=== PATIENT | male | born 2000 | race American Indian/Alaskan Native ===

== ENCOUNTER 2020-10-01 10:10 | Outpatient (REF) | payer MEDICAID, SELFPAY ==
[2020-10-01 12:01] LABS: Cholesterol 152 mg/dL; HDL Cholesterol 37 mg/dL; LDL Cholesterol Calculated 96 mg/dl; Triglycerides 96 mg/dL
[2020-10-08 12:46] LABS: Factor VIII Activity Clotting 95 % normal (50-180); PTT, Activated 29 sec (23-32); Ristocetin Cofactor 138 % normal (42-200)
== END 2020-10-01 10:11 | disposition home or self-care (01) ==
LOC: HO.LAB 10:10
PROVIDERS: PCP Internal Medicine; Visit Provider Internal Medicine
DX: E78.2 Mixed hyperlipidemia (principal); R04.0 Epistaxis
CPT/HCPCS: 36415; 80061; 85240; 85245; 85246; 85247; 85730

== ENCOUNTER 2021-03-14 15:01 | Outpatient (REF) | payer MEDICAID, SELFPAY ==
[2021-03-14 16:02] LABS: Anion Gap 13 (12-20); Blood Urea Nitrogen 14 mg/dL (9-16); Carbon Dioxide 27 mmol/L (22-29); Chloride 104 mmol/L (96-108); Estimated Glomerular Filt Rate > 60; Glucose Random 91 mg/dL (60-115); Potassium 4.3 mmol/L (3.3-5.1); Sodium 140 mmol/L (135-145)
[2021-03-14 16:22] LABS: Thyroid Stimulating Hormone 0.95 uIU/mL (0.32-4.0)
[2021-03-14 16:24] LABS: Syphilis Screen Nonreactive (Nonreactive)
[2021-03-14 16:37] LABS: Vitamin B12 574 pg/mL (200-900)
[2021-03-15 12:51] LABS: Lyme Abs Screen <0.90 index
== END 2021-03-14 15:02 | disposition home or self-care (01) ==
LOC: HO.LAB 15:01
PROVIDERS: PCP Nurse Practitioner; Visit Provider Psychiatry & Neurology Neurology
DX: G93.49 Other encephalopathy (principal)
CPT/HCPCS: 36415; 80048; 82607; 82746; 84443; 86617; 86618; 86780

== ENCOUNTER 2021-03-22 10:17 | Outpatient (REF) | payer MEDICAID, SELFPAY ==
--- NOTE | ~2021-03-22 | MR_ITS ---
EXAMINATION: MRI OF THE BRAIN WITHOUT CONTRAST. 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 COMPARISON: None TECHNIQUE: Multiplanar multisequence MR imaging of the brain was done without IV contrast. FINDINGS: Brain Volume: Within normal limits. Structural: No malformations. Brain and Meninges: DWI sequence demonstrates no restricted diffusion. There is a punctate T2 hyperintensity in the anterior subcortical right frontal white matter near the convexity which is a nonspecific finding. The brain is otherwise normal in morphology and signal intensity. There is no evidence for hemorrhage, hemosiderin staining or abnormal mineral deposition. No extra-axial fluid collections, space-occupying process or mass effect are identified. Espinosa-white matter differentiation is well maintained. Ventricles and Subarachnoid Spaces: The ventricular system and subarachnoid spaces appear within normal limits without hydrocephalus. Orbital Structures: The visualized orbital structures are grossly unremarkable within the limitations of the study. Vascular: Signal voids are noted in the visualized major intracranial vessels. Sinuses and Osseous Structures: Tiny retention cyst along the floor of the right maxillary sinus noted. Bony structures appear intact and unremarkable. MR/MR head/brain wo con IMPRESSION: 1. Nonspecific punctate subcortical white matter T2 hyperintensity in the right frontal lobe near the convexity. 2. Otherwise normal noncontrast MRI of the brain.
== END 2021-03-22 10:18 | disposition home or self-care (01) ==
LOC: HO.MRI 10:17
PROVIDERS: PCP Nurse Practitioner; Visit Provider Psychiatry & Neurology Neurology
DX: G93.49 Other encephalopathy (principal)
CPT/HCPCS: 70551

== ENCOUNTER 2021-05-26 08:43 | Emergency (ER) | payer MEDICAID, SELFPAY ==
[2021-05-26 08:46] VITALS: BP 145/87; PULSE 77; RESP 18; TEMP 36.9; O2SAT 95
--- NOTE | 2021-05-26 08:54 | ED.GENADULT ---
HPI - General Adult General Chief complaint: Upper Respiratory Symptoms Stated complaint: Sore throat Time Seen by Provider: 05/26/21 08:48 Source: patient Mode of arrival: ambulatory Limitations: no limitations History of Present Illness HPI narrative: Patient comes to emergency room complaining of a sore throat for couple of days. Patient denies fever chills, no ear pain. Patient complaining of nasal congestion. Patient states that over the last year he has been using his inhaler for asthma more often than usual, but has not changed over the last few days. Related Data Allergies Allergy/AdvReac Type Severity Reaction Status Date / Time No Known Allergies Allergy Unverified 11/13/19 19:34 [No Known Allergies*] Review of Systems Review of Systems: Constitutional : No Weight loss, No Fever, No Chills, No Night Sweats, No Fatigue, No Malaise ENT/Mouth : No Hearing loss, No Ear Pain, complaining of Nasal Congestion, No Sinus Pain, No Hoarseness, No sore throat, complaining of Rhinorrhea, No Swallowing Difficulty Eyes: No Eye Pain, No Swelling, No Redness, No Foreign Body, No Discharge, No Vision Changes Cardiovascular : No Chest Pain, No SOB, No Dyspnea on Exertion, No Orthopnea, No Edema, No Palpitations Respiratory : No Cough, No Sputum, chronic intermittent Wheezing, No Smoke Exposure, No Dyspnea Gastrointestinal : No Nausea, No Vomiting, No Diarrhea, No Constipation, No abdominal Pain, No Hematochezia, No Melena Genitourinary : no irregular bleeding, No Dysuria, No Urinary Frequency, No Hematuria, No Urinary Incontinence, No Urgency, No Flank Pain, No Urinary Flow Changes, No Hesitancy Musculoskeletal : No joint pain, No Myalgias, No Joint Swelling Skin : No Skin Lesions, No rash Neuro : No Weakness, No Numbness, No Paresthesias, No Loss of Consciousness, No Dizziness, No Headache Psych : No Anxiety/Panic, No Depression, No SI/HI/AH/VH, No Social Issues, Heme/Lymph: No Bruising, No Bleeding,No Lymphadenopathy Endocrine : No Polyuria, No Polydipsia, No Temperature Intolerance PMF Past Medical History Medical History (Updated 05/26/21 @ 09:01 by Tarsha Esquivel MD) Asthma Social History Social History Advance Directives: No Physical Exam ED Vital Signs: Vital Signs - 24 hr 05/26/21 08:46 05/26/21 09:17 Temperature 98.5 F 98.5 F Pulse Rate 77 77 Respiratory Rate 18 18 Blood Pressure 145/87 H 145/87 H Pulse Oximetry 95 95 BMI result Body Mass Index 22.9 Const Other: Appearance: Alert. Oriented X3. No acute distress. Eyes: Pupils equal, round and reactive to light. ENT: Erythematous oropharynx, no abscess, uvula is slightly enlarged without causing any shifting or obstruction, no exudates, normal tongue Neck: Normal inspection. Neck supple. No lymph nodes noted. No crepitus CVS: Normal heart rate and rhythm. Pulses normal. Normal S1 and S2 Respiratory: No respiratory distress. Breath sounds normal. No Wheezing. No rales Abdomen: Soft and nontender. No rigidity. No distention. Skin: Skin warm and dry. Normal skin color. Normal skin turgor. Extremities: No lower extremity edema. No Lacerations. No Rash Neuro: Oriented X 3. No motor deficit. No sensory deficit. Moving all extremities. No slurred speech. CN 2 through 12 grossly intact Psych: calm, cooperative, normal affect Course Course Course Narrative: Influenza and COVID tests pending, rapid strep pending as well. Symptomatic treatment, patient was given oral lidocaine and dexamethasone. Patient tested negative for influenza, COVID and strep. Patient likely having a viral illness. Patient is well-appearing. No wheezing. Patient ready for discharge Medical Decision Making Lab Data Labs: Lab Results 05/26/21 05/26/21 05/26/21 Range/Units 09:08 09:08 09:08 COVID-19 ([facility]) Negative (Negative) COVID-19 Clin Com See Note Influenza Type A ([facility]) Negative (Negative) Influenza Type B ([facility]) Negative (Negative) Influenza A & B Note See Note S. pyogenes GrpA [facility] Negative (Negative) Discharge Plan Discharge Clinical Impression: Acute viral pharyngitis Patient Disposition: Home, Self-Care Instructions: Pharyngitis (ED) Additional Instructions: Please follow-up with your primary care physician tomorrow. If you have any worsening or new symptoms, please return to the emergency room or call 911 Stand Alone Forms: Work/School Release
[2021-05-26] MEDS: Lidocaine HCl Viscous 2 % 15 ML SOLUTION MUCOUS MEM (09:14)
[2021-05-26] MEDS: dexAMETHasone sod phosphate 10 MG/ML VIAL IVPUSH (09:14)
[2021-05-26 09:17] VITALS: BP 145/87; PULSE 77; RESP 18; TEMP 36.9; O2SAT 95; BMI 22.9
[2021-05-26 09:29] LABS: Strep A Nucleic Acid Negative (Negative)
[2021-05-26 09:42] LABS: COVID-19 Test Negative (Negative)
[2021-05-26 09:47] LABS: Influenza A Negative (Negative); Influenza B2 Negative (Negative)
== END 2021-05-26 10:24 | disposition home or self-care (01) ==
PROVIDERS: Emergency Provider Emergency Medicine; PCP Nurse Practitioner
DX: J02.9 Acute pharyngitis, unspecified (principal); Z20.822 Contact with and (suspected) exposure to COVID-19
CPT/HCPCS: 87502; 87635; 87651; 99283; J1100

== ENCOUNTER 2024-03-07 11:24 | Outpatient (REF) | payer OTHER, SELFPAY | END 2024-03-07 11:25 | disposition home or self-care (01) | LOC: HO.LAB 11:24 | PROVIDERS: PCP Nurse Practitioner Family; Visit Provider Nurse Practitioner Family | DX: Z00.01 Encounter for general adult medical examination with abnormal findings (principal); J45.20 Mild intermittent asthma, uncomplicated; Z23 Encounter for immunization; G93.49 Other encephalopathy; F33.1 Major depressive disorder, recurrent, moderate; F41.1 Generalized anxiety disorder; F12.90 Cannabis use, unspecified, uncomplicated; G40.209 Localization-related (focal) (partial) symptomatic epilepsy and epileptic syndromes with complex partial seizures, not intractable, without status epilepticus; G43.009 Migraine without aura, not intractable, without status migrainosus; Z76.89 Persons encountering health services in other specified circumstances | CPT/HCPCS: 90471; 90656; 96127; 96160; 99202; 99385 ==

== ENCOUNTER 2024-03-07 11:24 | Outpatient (AMB) | payer OTHER, SELFPAY ==
--- NOTE | 2024-03-07 11:36 | A.OFFPC_ITS ---
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 Required: No Allergies No Known Allergies [No Known Allergies*] Allergy (Verified 03/07/24 12:13) Tobacco use date assessed: 03/07/24 Dental Screening Dental Screen Date: 03/07/24 Did you have a dental visit in the last 12 months?: No Did you have a dental problem in the last 6 months where you did not have access to dental care?: No Was dental information given to patient?: Patient has dentist HPI HPI Comments History of Present Illness Details 24-year-old male with chronic encephalop athy, major depressive disorder, generalized anxiety disorder, complex partial seizure disorder, epilepsy, migraine, current marijuana use Health Maintenance Flu admin today Specialist [facility], last visit 02/2024, next 07/2024 Psych [facility] appt last week, next appt 2 months Declines counseling The patient is a 24-year-old male [facility]. Here today w/ Mom. Previous PCP: KRIS Zhao MA, no records available as in the visit today. The patient has a history of seizure disorder, epilepsy, encephalopathy, and migraines. The seizures are managed well currently, with the last occurrence two months ago. There are no complications reported, but the patient is not driving due to the seizure disorder. The patient is on medications managed by a neurologist; Also has psychiatrist for medication prescription. Declines counseling. The patient also has anxiety and depression, which are monitored with recent psychiatric interventions. Additionally, the patient has asthma, reporting the use of an albuterol inhaler recently due to mild asthma symptoms. Asthma seems moderately controlled, as the patient rates control as kind of okay, using the inhaler about 10 times in the past four weeks, predominantly managing it with montelukast, and a preventative inhaler has been used previously. - Eye health: Referral for a comprehensi ve eye examination, as he reports that he wore glasses while living in [place] Social History - Resides with family support - History of marijuana use, denies cigar ette smoking - Previously wore glasses following an e ye examination, but has not had recent eye exams - Transportation available for medical a ppointments Review of Systems - Respiratory: Reports using albuterol i nhaler approximately 10 times in the past four weeks - Neurological: Denies recent seizures ( last occurred two months ago) - General: Denies trouble with daily act ivities due to asthma General: Well developed, well nourished, in no acute distress. Appears stated age. Head: Normocephalic, atraumatic. Eyes: Pupils are equal, round and reactive to light and accommodation. Conjunc tivae are clear. Vision grossly normal. Ears: TMs clear AU, EACS WNL Nose: Patent, without discharge. Mouth: There are no ulcers or lesions noted. No inflammation, no post nasal drip, no plaques nor exudates. Neck: Supple, no adenopathy or thyromegaly. Lungs: Clear to auscultation bilaterally. No rales, rhonchi or wheeze noted. Good air flow in all alfredo. Heart: Regular rate and rhythm. No murmurs, click, rubs or gallops are noted. Abdomen: Bowel sounds present in all quadrants. The abdomen is soft, nontender, with no masses or organomegaly noted. No hernias are noted. Musculoskeletal: Joints are nontender, without swelling, redness, or effusions. Range of motion is observed to be normal. Pulses: Peripheral pulses are equal and palpable bilaterally. Extremities: No clubbing, cyanosis nor edema is noted. Neurologic: Gait and station normal. Cranial Nerves 2-12 intact. Motor strength grossly symmetrical and intact. No sensory loss. Balance normal. Skin: No rashes, ulcers, or lesions noted. Turgor is good. Skin color is good. Hair and nails are without abnormalities. Psych: Normal eye contact, affect and mood appropriate, and normal interactions. Patient is alert and appropriate to context. Patient was informed and verbally consented to the use of an ambient scribe for clinic note documentation during this visit. Discussion Notes I discussed with the patient the importance of maintaining regular follow-ups with neurology for his seizure disorder and medication management. We reviewed the asthma control and agreed to prescribe a CombiVent inhaler to enhance asthma management, emphasizing the use of one inhaler at a time for best results. The potential benefits of the combination inhaler were outlined to include better airway opening. The need for consistent monitoring and communication via the patient portal was also stressed for any new or acute concerns. A discussion was held regarding potential benefits and lack of necessity for counseling, considering the patient's current wishes concerning therapy. A referral for an eye examination was made to verify the student's previous need for corrective lenses, updating the supervisor composing room on potential vision changes. Plan - Continue current epilepsy management w [facility] neurologist oversight - Pursue psychiatric follow-up for mayte ng anxiety and depression management - Initiate the usage of CombiVent inhale r for asthma management, reassess in six months - Administered influenza vaccination - Referral for a routine eye examination - Obtain routine screening labs includin g kidney and liver function tests Patient Instructions - Use the CombiVent inhaler as directed, one puff up to four times daily, and monitor asthma symptoms. Avoid using two inhalers simultaneously. - Follow up with your psychiatrist and n eurologist as scheduled and continue prescribed medications. - Attend the recommended eye examination for an updated vision assessment. - Download and utilize the patient vickie l for communication and appointment scheduling. - Arrange an appointment in six months, unless otherwise needed, for a follow-up review of asthma management. - Have the routine labs completed as adv ised to monitor essential health indicators. - If you experience any acute issues or changes in your seizure or asthma symptoms, visit or contact the clinic as needed. - Received flu vaccine today; no additio nal vaccines required currently. An additional 20 minutes was spent addressing the problem(s) noted at todays visit. This includes time spent before the visit reviewing the chart, time spent during the visit, and time spent after the visit on documentation [facility] Medical History (Updated 03/07/24 @ 18:25 by Sherry Skelton, [facility]) Seizure disorder Encephalopathy Compulsive behavior disorder Migraines Epilepsy Insomnia Anxiety and depression Asthma Surgical History (Updated 03/07/24 @ 11:47 by Angel Strong MA) No pertinent past surgical history Family History (Updated 03/07/24 @ 11:44 by Angel Strong MA) Mother Mental health disorder Maternal Grandmother Diabetes Thyroid disorder Social History (Updated 03/07/24 @ 11:42 by Angel Strong MA) Household Members: Family Household Members Other:: mother Both parents involved: No Caregiver staying overnight: No Housing: Apartment Are you a primary acute care occupational therapist to a significant other at home: No Do you presently have visiting nurse or other home services: No 75 years or older and lives alone: No Alcohol intake: never Patient Tobacco Use Status: Never used Tobacco e-Cigarette/Vaping Use: Never Used Second Hand Smoke Exposure: No Current occupational status: unemployed Cognitive needs: Yes Hearing needs: No Vision needs: No Questionnaire PHQ-9 Over the last 2 weeks, how often have you been bothered by any of the following problems? 1. Little interest or pleasure in doing things: not at all 2. Feeling down, depressed, or hopeless: not at all 3. Trouble falling or staying asleep, or sleeping too much: several days 4. Feeling tired or having little energy: several days 5. Poor appetite or overeating: several days 6. Feeling bad about yourself - or that you are a failure or have let yourself or your family down: several days 7. Trouble concentrating on things, such as reading the newspaper or watching television: several days 8. Moving or speaking so slowly that other people could have noticed. Or the opposite - being so fidgety or restless that you have been moving around a lot more than usual: several days 9. Thoughts that you would be better off or of hurting yourself in some way: not at all Total score: 6 Depression Screening Interpretation: Positive Depression Screening Follow-up: Existing condition and In treatment Depression Screening Done: Yes 77369 - PHQ-9 Billing: Yes Source: Developed by Drs. Jesus Funes, Leonora Guevara, Ahmet Montero and colleagues, with an educational lolly from [employer]. Thrive Questionnaire Date Thrive assessed: 03/07/24 I am a: Parent/Caregiver What is your living situation today?: I have a steady place to live Within the past 12 months, did the food you bought not last and you didn't have the money to get more?: Never true Within the past 12 months, did you worry whether your food would run out before you got money to buy more?: Never true Do you have trouble paying for medicines?: No Do you have trouble getting transportation to medical appointments?: No Do you have trouble paying your heating and electricity bill?: No Do you have trouble taking care of your child, family member or friend?: No Do you have trouble with day-to-day activities such as bathing, preparing meals, shopping, managing finances, etc.?: No Are you currently unemployed and looking for a job?: No Are you interested in more education?: No Please select the resources that you would like help with: None Currently or been in a relationship where the following occur: I choose not to answer THRIVE Score: 0 AUDIT C Alcohol Use Questionnaire (AUDIT-C) 1. How often do you have a drink containing alcohol?: Never 3. How often do you have six or more drinks on one occasion?: Never Total Score: 0 Score Reviewed/Action Taken: Yes NESSA-7 AMB Questionnaire NESSA-7 Date NESSA - 7 assessed: 03/07/24 Feeling nervous, anxious, or on edge: 1 = Several days Not being able to stop or control worryin = Not at all Worrying too much about different things: 0 = Not at all Trouble relaxin = Several days Being so restless that it is hard to sit still: 2 = More than half the days Becoming easily annoyed or irritable: 2 = More than half the days Feeling afraid as if something awful might happen: 0 = Not at all Total NESSA-7 score (0-4 normal; 5-9 mild; 10-14 moderate; 15-21 severe): 6 Source: Developed by Drs. Jesus Funes, Leonora Guevara, Ahmet Montero and colleagues, with an educational lolly from [employer]. NESSA-7 Assessment Billing NESSA-7 Assessment Tool: NESSA-7 Assessment 27869 ACT Questionnaire In the past 4 weeks, how much of the time did your asthma keep you from getting as much done at work, school or at home?: None of the time During the past 4 weeks, how often have you had shortness of breath?: Not at all During the past 4 weeks, how often did your asthma symptoms wake you up at night or earlier than usual in the morning?: Not at all During the past 4 weeks, how often have you had to use your rescue inhaler or nebulizer medication?: More than 3 times per day How would you rate your asthma control during the past 4 weeks?: Well controlled ACT Interpretation: Negative Score: 20 Physical exam (Primary Care) Vital Signs: Last Vital Signs Pulse 78 03/07/24 11:47 Resp 12 03/07/24 11:47 BP 124/76 03/07/24 11:47 Pulse Ox 95 03/07/24 11:47 Oxygen Delivery Method Room Air 03/07/24 11:47 BMI result Body Mass Index 23.7 Tobacco/Smoking Status: Tobacco use Status Tobacco use date assessed 03/07/24 03/07/24 11:48 Patient Tobacco Use Status Never used Tobacco 03/07/24 11:48 e-Cigarette/Vaping Use Never Used 03/07/24 11:48 PHQ-9: PHQ-9 Score PHQ-9: Total score 6 03/07/24 12:38 Depression Screening Interpretation: Positive Depression Screening Follow-up: Existing condition and In treatment Thrive Assessment: Date of Thrive Assessment Date Thrive assessed 03/07/24 03/07/24 11:39 Currently or been in a relationship where the following occur: I choose not to answer Office Procedures Flu Questionnaire Does the patient have a severe egg allergy?: No Does the patient have severe life threatening allergies?: No Does the patient have a fever or illness today?: No Has the patient ever had Guillain-Bath Syndrome?: No Has the patient ever had any past reaction to a flu shot?: No Immunizations Fluarix Triv 3695-2196 (PF) 45 mcg (15 mcg x 3)/0.5 mL IM syringe Performing Provider: Sherry Skelton [facility] Performing Location: [facility] Administered by: Leandra Kendrick RN on 03/07/24 12:38 Dose Route Admin Location Dispensed Lot Number Expiration Date [facility] User Support Analyst Supervisor 0.5 mL IM Right Deltoid 0.5 mL [id number] 08/25/24 [id number] [employer] VIS Given Date VIS Provided VIS Publication Date 03/07/24 Single Vaccine 20 Eligibility Eligibility Date Funding Source Not [facility] Eligible 03/07/24 Private Coding Level of Care Code New Pt Level 2 (81017) New Pt Prev Care 18-39yr(32598 Diagnoses Encounter for general adult medical examination with abnormal findings Z00.01 Mild intermittent asthma without complication J45.20 Asthma complication type: uncomplicated Influenza vaccination administered at current visit Z23 Laboratory exam ordered as part of routine general medical examination Z00.00 Encephalopathy chronic G93.49 Moderate episode of recurrent major depressive disorder F33.1 Major depression episode severity: moderate NESSA (generalized anxiety disorder) F41.1 Marijuana use, continuous F12.90 Epilepsy with partial complex seizures G40.209 Migraine without aura and without status migrainosus, not intractable G43.009 Status migrainosus presence: without status migrainosus Intractability: not intractable Encounter to establish care Z76.89 Additional Codes Asthma Control Questionnaire - ACT Interpretation: Negative ([id number]) NESSA-7 Assessment Billing - NESSA-7 Assessment Tool: NESSA-7 Assessment 60686 ([id number]) PHQ-9 - 10690 - PHQ-9 Billing: Yes ([id number]) Assessment & Plan Assessment & Plan (1) Encounter for general adult medical examination with abnormal findings: Code(s): Z00.01 - Encounter for general adult medical examination with abnormal findings Category: Medical (2) Mild intermittent asthma: Code(s): J45.20 - Mild intermittent asthma, uncomplicated Category: Medical Qualifiers: Asthma complication type: uncomplicated Qualified Code(s): J45.20 - Mild intermittent asthma, uncomplicated (3) Influenza vaccination administered at current visit: Code(s): Z23 - Encounter for immunization (4) Laboratory exam ordered as part of routine general medical examination: Code(s): Z00.00 - Encounter for general adult medical examination without abnormal findings Category: Medical (5) Encephalopathy chronic: Code(s): G93.49 - Other encephalopathy Category: Medical (6) MDD (major depressive disorder), recurrent episode: Code(s): F33.9 - Major depressive disorder, recurrent, unspecified Category: Medical Qualifiers: Major depression episode severity: moderate Qualified Code(s): F33.1 - Major depressive disorder, recurrent, moderate (7) NESSA (generalized anxiety disorder): Code(s): F41.1 - Generalized anxiety disorder Category: Medical (8) Marijuana use, continuous: Comment: Marijuana: Natural = Safe, Right? Marijuana is readily available to use in many states in the [facility]. Understanding the possible risks of use is important to ensure the safety. No matter how you use marijuana (smoke it, eat it, or apply to your skin), it may cause problems with both short term and predatory animal exterminator use How marijuana affects your BRAIN: Potential effects from Short Term Use Poor focus, memory and reaction time Difficulty with problem solving Hallucinations, paranoia, anxiety Potential effects from Sem Manager Use Memory problems and tro uble learning new things Depression, hallucinations, paranoia, anxiety, worsening PTSD symptoms addiction Brain. It is not safe to drive while on marijuana. It makes it hard to door hanger distance, concentrate, react quickly to signals and sounds, be alert and coordinated. If alcohol is combined, this risk is even higher! In regular users, some of the effects from predatory animal exterminator use may last for days or even weeks after stopping marijuana. How inhaling marijuana affects your LUNGS: Inhaling harmful chemicals Gases Small particles Carcinogens (toxins linked to cancer) Breathing problems similar to tobacco smokers Daily cough with mucus Difficulty breathing Lung infections (bronchitis, pneumonia) Lungs How marijuana affects your HEART: Increases risk of heart attack Within the first hour of smoking Increases heart rate 20?100% increase after smoking Increase lasts up to three hours Changes in heart rhythm Feels like your heart skips a beat, or is fluttering, or beating too fast or too slow Heart Is it SAFE to use marijuana with other medications? A combination that can be concerning is the use of opioids and/or benzodiazepines with marijuana. Opioids + Benzodiazepines + Marijuana: Drowsines s: All three can cause drowsiness. Reaction time: All three can reduce reaction time. Do not drive or operate machinery. Overdose: Opioids and Benzodiazepines can cause reduced breathing and in some cases, breathing can stop and a person can . Marijuana containing higher levels of THC may cause difficulty with thinking and memory and this could result in medication errors where extra doses of opioids, benzodiazepines, or other medications may be taken. What is the harm? Example of Opioids Morphine (MS Contin?, Zakiya?) Oxycodone (Percocet?, OxyContin?) Hydrocodone (Vicodin?, [place]?) Fentanyl (Duragesic?) Methadone Heroin Example of Benzodiazepines Lorazepam (Ativan?) Diazepam (Valium?) Alprazolam (Xanax?) Clonazepam (Klonopin?) If you have specific questions about the safety of using marijuana with other medications, please contact your provider or pharmacist. Some marijuana users can become addicted! You can have problems with marijuana withdrawal. You may have withdrawal symptoms the day after you stop using. These can get worse 2 to 3 days after using and can take 1 to 2 weeks or longer to go away. Recovery and Treatment Contact your provider or health care team if you are having concerns about your marijuana use or to learn more about available treatment services. The marijuana plant is not an FDA-approved medicine: The U.S. Food and Drug Administration (FDA) has not approved the marijuana plant as a medication due to lack of studies on the risks and benefits. Marijuana contains over 100 chemical substances known as cannabinoids. Some of these, like tetrahydrocannabinol (THC), have mind altering effects and can be intoxicating. Cannabidiol (CBD), another cannabinoid, does not cause the same ?high? users of THC experience. THC has been studied for the treatment of several conditions, including nausea and increasing appetite. CBD is similarly being studied for a number of conditions, including childhood epilepsy and inflammation. What is different between the marijuana product I get from the marijuana shop and a prescription from the pharmacy? The right dose of any medicine is important. A specific dose of THC is approved to treat nausea, but high doses of THC may cause vomiting. The ingredients in a medicine must be measured and stay the same from one dose to the next. The marijuana plant contains unknown ingredients that change from plant to plant. This makes it hard to control the ?dose? of marijuana needed to treat a condition and use it in the same way we use other medicines. Future studies are ongoing to establish the role of the marijuana pl ant and the cannabinoids found in the plant for treatment of medical conditions. If you have questions about using a marijuana product for a medical condition, please discuss this with your medical provider to determine the most appropriate treatment for you. VA Providers are not able to prescribe marijuana products. Information in this document was compiled by the Center of Excellence in Substance Abuse treatment and Education ([facility]). It contains information from factsheets by the National [place] on Drug Abuse (www.drugabuse.gov) and presentation by Lars Machado, Lars Kramer, & Nicolasa Mcgrath (2010) entitled ?What providers need to know about cannabis use in Veterans with mental health conditions: Research, policy, practice,? and an additional reference: Torrie Chen M.D., Carlos Nixon, Ph.D., Juan M Osman M.D., and Ene Cabrera, Ph.D: Adverse Effects of Marijuana. N Engl J Med 2014; 370:4320-2050, July 31, 2013 DOI: 10.1056/BPNFzu2140973. [facility] Academic Detailing Service Code(s): F12.90 - Cannabis use, unspecified, uncomplicated Category: Medical (9) Epilepsy with partial complex seizures: Code(s): G40.209 - Localization-related (focal) (partial) symptomatic epilepsy and epileptic syndromes with complex partial seizures, not intractable, without status epilepticus Category: Medical (10) Migraine without aura: Code(s): G43.009 - Migraine without aura, not intractable, without status migrainosus Category: Medical Qualifiers: Status migrainosus presence: without status migrainosus Intractability: not intractable Qualified Code(s): G43.009 - Migraine without aura, not intractable, without status migrainosus (11) Encounter to establish care: Code(s): Z76.89 - Persons encountering health services in other specified circumstances Plan . Orders: Orders Comprehensive Met. Panel Today Z00.00 - Encounter for general adult medical examination without abnormal findings, Z11.3 - Encounter for screening for infections with a predominantly sexual mode of transmission Hemoglobin A1c Today Z00.00 - Encounter for general adult medical examination without abnormal findings, Z11.3 - Encounter for screening for infections with a predominantly sexual mode of transmission Lipid Panel Today Z00.00 - Encounter for general adult medical examination without abnormal findings, Z11.3 - Encounter for screening for infections with a predominantly sexual mode of transmission Vitamin B12 and Folate Today Z00.00 - Encounter for general adult medical examination without abnormal findings, Z11.3 - Encounter for screening for infections with a predominantly sexual mode of transmission TSH reflex Free T4 Today Z00.00 - Encounter for general adult medical examination without abnormal findings, Z11.3 - Encounter for screening for infections with a predominantly sexual mode of transmission Influenza [id number] Immunization Today Z23 - Encounter for immunization Referrals Ophthalmology Referral H53.8 - Other visual disturbances Medications: New ipratropium-albuterol 20-100 mcg/actuation (Combivent Respimat) space evenly during waking hours 1 puff inhalation QID 4 grams 2RF Patient Instructions: Walk-In Care (Urgent Care): [facility] Make it Easy Walk-in for urgent medical issues such as: ? Seasonal Allergies ? Insect Bites ? Cough ? Diarrhea ? Acute Asthma Attacks ? Back, Knee or Joint Pain ? Ear Infection ? Fever without a Rash ? Headaches ? Nausea ? Tanana Eye, Rash or Skin Irritation ? Sore Throat ? Sports Physicals ? Vomiting Most insurances are accepted. Patients do not need to be part of the [facility] to seek care at the walk-in clinic. Locations [address] [facility] [facility] [address] , [place] [address] ? [phone] [facility] Walk-In Care in [facility] provides services to ages 18 and over. Open Sunday-Sunday: 8 a.m. to 5 p.m. and Sunday: 9 a.m. to 3 p.m.* *Hours may vary due to staffing availability. To confirm Walk-In Care hours in [place], please call [phone]. [address] [place] [id number] ? [phone] [facility] Walk-In Care in [place] provides services to ages 12 and over. Open Sunday-Sunday: 8 a.m. to 5 p.m. Hours may vary due to staffing availability. To confirm Walk-In Care hours in [place], please call [phone]. LABORATORY SERVICES: [facility] Lab ? Primary Location [address] [place] [address] Sunday through Sunday 6:00 AM ? 5:00 PM Sunday 7:00 AM ? 11:00 AM* [phone] The [facility] Lab is centrally located near the front entrance of the [facility] for easy outpatient access. Convenient parking is provided for outpatients. *Hours may vary due to staffing availability. To confirm Laboratory hours for any location, please call [phone]. Offsite Location For your convenience, we offer offsite laboratory draw stations at the following locations: [address] [place] [address] ? [facility] [address], [address] [place] [address] Sunday through Sunday 7:30 AM ? 1:00 PM* [phone] *Hours may vary due to staffing availability. To confirm Laboratory hours for any location, please call [phone]. [facility] ? [address] Sunday through Sunday 6:00 AM ? 3:30 PM* Sunday 6:30 AM ? 3 PM* [phone] *Hours may vary due to staffing availability. To confirm Laboratory hours for any location, please call [phone]. [address] [facility] Sunday through Sunday 7:30 AM ? 4:00 PM* [phone] *Hours may vary due to staffing availability. To confirm Laboratory hours for any location, please call [phone]. [address] [facility] Sunday through 9:00 AM ? 4:00 PM* *Hours may vary due to staffing availability. To confirm Laboratory hours for any location, please call [phone]. Appointments are not necessary. Walk-ins are welcome. Like all the departments throughout the [facility], our Lab undergoes frequent reviews to ensure the quality and accuracy of test results, and our staff takes special pride in its status as a nationally accredited facility. Patient Portal: ONE PATIENT. ONE RECORD. BETTER CARE. [facility] has a fully integrated, cutting-edge mobile electronic health information system that has revolutionized the way we care for our patients and manage our organization. This system improves communication and coordination enabling us to provide safe, higher-quality care, and an overall positive experience for staff and patients. Our first priority, as always, is to deliver the highest quality care possible. The system is running in the background supporting that priority. This portal is for all [facility] and [facility] services and practices. If you are experiencing any technical difficulties with enrolling or logging into the Patient Portal please complete the [facility] Patient Portal Technical Support Form. [facility] and [facility] now offers a new secure on-line interactive tool for patients to review their health information ? ?Patient Portal. This interactive web portal will enable patients and their families to take an active role in their care by providing easy, secure access to their health information via the internet. The Patient Portal provides patients with instant access to their health information, including laboratory results, medications, allergies, demographic information, visit history, and more. In addition to managing their own care, parents and health care proxies with authorized consent will appreciate the ability to access the records of those individuals for whom they provide care. Please note: if you wish to gain access (Proxy) to another patient?s portal, you will be required to come to the Medical Records Department in person at [facility]. Both the patient giving proxy access and the proxy will need to provide photo identification and complete the appropriate authorization. The Patient Portal also allows track their appointments online. The [facility] Patient Portal also saves patients time by allowing them to submit updates to their demographic and contact information prior to their visits. Portal email notifications will also alert patients to any new activity on their portal, such as test results and new appointments. In order to initially enroll in the [facility] Patient Portal, you will need to enter some required information including the following: * your [facility] Medical Record number * your personal home email address * name * date of Please note: In order to enroll in the [facility] Patient Portal, we need to have your email address on file in your electronic medical record. ?The email address needs to be specific for one person (yourself) in order for your Portal enrollment to be successful. ?You can update your email address in person with our Registration staff when you are registering for a hospital visit. ?Otherwise, you will need to come to the Health Information Management (Medical Records) Department at [facility]. ?We are open from Sunday ? Sunday from 7:30 a.m. ? 4:30 p.m. ?You will be required to present a photo id. Once you have successfully enrolled in the Patient Portal, you will receive a one-time user id and password for the Portal, sent to your email address. ?This will allow you to log into the Patient Portal within 99 hrs and reset your own logon id and password, and define personal security questions. ?Once your permanent login and password have been set, you can log into the [facility] Patient Portal at any time via the blue button above or from the Portal Logon button on any page of the [facility] website. [facility] and [facility] encourage all of our patients to enroll in Patient Portal as it presents a valuable opportunity for patients a nd their families to actively participate in their care and stay healthy Welcome to [facility]. ?We look forward to working with you. Health screenings for men You should visit your health care provider regularly, even if you feel healthy. The purpose of these visits is to: Screen for medical issues Assess your risk for future medical problems Encourage a healthy lifestyle Update vaccinations and other preventive care services Help you get to know your provider in case of an illness Information Even if you feel fine, you should still see your provider for regular checkups. These visits can help you avoid problems in the future. For example, the only way to find out if you have high blood pressure is to have it checked regularly. High blood sugar and high cholesterol level also may not have any symptoms in the early stages. Simple blood tests can check for these conditions. There are specific times when you should see your provider or receive specific health screenings. The [place] Preventive Services Task Force publishes a list of recommended screenings. Below are screening guidelines for men ages 40 to 64. BLOOD PRESSURE SCREENING Have your blood pressure checked at least once every year. Watch for blood pressure screenings in your area. Ask your provider if you can stop in to have your blood pressure checked. Ask your provider if you need your blood pressure checked more often if: You have diabetes, heart disease, kidney problems, or are overweight or have certain other health conditions You have a first-degree relative with high blood pressure You are Black Your blood pressure top number is from 120 to 129 mm Hg, or the bottom number is from 70 to 79 mm Hg If the top number is 130 mm Hg or greater or the bottom number is 80 mm Hg or greater, this is considered stage 1 hypertension. Schedule an appointment with your provider to learn how you can lower your blood pressure. Effects of age on blood pressure CHOLESTEROL SCREENING Cholesterol screening should begin at age 35 for men with no known risk factors for coronary heart disease. Repeat cholesterol screening should take place: Every 5 years for men with normal cholesterol levels More often if changes occur in lifestyle (including weight gain and diet) More often if you have diabetes, heart disease, kidney problems, or certain other conditions COLORECTAL CANCER SCREENING If you are under age 45, talk to your provider about getting screened. You may need to be screened if you have a strong family history of colon cancer or polyps. Screening may also be considered if you have risk factors such as a history of inflammatory bowel disease or polyps. If you are age 45 to 75, you should be screened for colorectal cancer. There are several screening tests available: A stool-based fecal occult blood (gFOBT) or fecal immunochemical test (FIT) every year A stool sDNA test every 1 to 3 years Flexible sigmoidoscopy every 5 years or every 10 years with stool testing FIT done every year CT colonography (virtual colonoscopy) every 5 years Colonoscopy every 10 years You may need a colonoscopy more often if you have risk factors for colorectal cancer, such as: Ulcerative colitis A personal or family history of colorectal cancer A history of growths in your colon called adenomatous polyps DENTAL EXAM Go to the dentist once or twice every year for an exam and cleaning. Your dentist will evaluate if you have a need for more frequent visits. DIABETES SCREENING All adults who do not have risk factors for diabetes should be screened starting at age 35 and repeated every 3 years. If you have other risk factors for diabetes, such as a first degree relative with diabetes, overweight or obesity, high blood pressure, prediabetes, or a history of heart disease, you may be tested more often. If you are overweight and have other risk factors, such as high blood pressure and are planning to become , screening is recommended. EYE EXAM Have an eye exam every 2 to 4 years ages 40 to 54 and every 1 to 3 years ages 55 to 64. Your provider may recommend more frequent eye exams if you have vision problems or glaucoma risk. Have an eye exam that includes an examination of your retina (back of your eye) at least every year if you have diabetes. IMMUNIZATIONS Commonly needed vaccines include: Flu shot: get one every year COVID-19 vaccine: ask your provider what is best for you Tetanus-diphtheria and acellular pertussis (Tdap) vaccine: have as one of your tetanus-diphtheria vaccines if you did not receive it as an adolescent Tetanus-diphtheria: have a booster (or Tdap) every 10 years Varicella vaccine: receive 2 doses if you never had chickenpox or the varicella vaccine and were born in 1979 or after Hepatitis B vaccine: receive 2, 3, or 4 doses, depending on your exact circumstances, if you did not receive these as a child or adolescent, until age 59 Shingles (herpes zoster) vaccine: at or after age 50 Ask your provider if you should receive other immunizations, especially if you have certain medical conditions, such as diabetes or are at increased risk for some diseases such as pneumonia. INFECTIOUS DISEASE SCREENING Screening for hepatitis C: all adults ages 18 to 79 should get a one-time test for hepatitis C. Screening for human immunodeficiency virus (HIV): all people ages 15 to 65 should get a one-time test for HIV. Depending on your lifestyle and medical history, you may need to be screened for infections such as syphilis, chlamydia, and other infections. LUNG CANCER SCREENING You should have an annual screening for lung cancer with low-dose computed tomography (LDCT) if: You are age 50 to 80 years AND You have a 20 pack-year smoking history AND You currently smoke or have quit within the past 15 years OSTEOPOROSIS SCREENING If you are age 50 to 64 and have risk factors for osteoporosis, you should discuss screening with your provider. Risk factors can include long-term steroid use, low body weight, smoking, heavy alcohol use, having a fracture after age 50, or a family history of hip fracture or osteoporosis. Osteoporosis PHYSICAL EXAM All adults should visit their provider from time to time, even if they are healthy. The purpose of these visits is to: Screen for diseases Assess risk of future medical problems Encourage a healthy lifestyle Update vaccinations and other preventive care services Maintain a relationship with a provider in case of an illness Your height, weight, and body mass index (BMI) should be checked at every exam. During your exam, your provider may ask you about: Depression and anxiety Diet and exercise Alcohol and tobacco use Safety, such as use of seat belts and smoke detectors Your medicines and risk for interactions PROSTATE CANCER SCREENING If you're 55 through 69 years old, before having the test, talk to your provider about the pros and cons of having a PSA test. Ask about: Whether screening decreases your chance of dying from prostate cancer. Whether there is any harm from prostate cancer screening, such as side effects from testing or overtreatment of cancer when discovered. Whether you have a higher risk of prostate cancer than others. If you are age 55 or younger, screening is not generally recommended. You should talk with your provider about if you have a higher risk for prostate cancer. Risk factors include: Having a family history of prostate cancer (especially a brother or father) Being If you choose to be tested, the PSA blood test is repeated over time (yearly or less often), though the best frequency is not known. Prostate examinations are no longer routinely done on men with no symptoms. Prostate cancer SKIN EXAM Your provider may check your skin for signs of skin cancer, especially if you're at high risk. People at high risk include those who have had skin cancer before, have close relatives with skin cancer, or have a weakened immune system. TESTICULAR EXAM The [place] Preventive Services Task Force (USPSTF) now recommends against performing testicular self-exams. Doing testicular self-exams has been shown to have little to no benefit.
[2024-03-07 11:47] VITALS: BP 124/76; PULSE 78; RESP 12; O2SAT 95; BMI 23.7
== END 2024-03-07 12:44 | disposition home or self-care (01) ==
PROVIDERS: PCP Nurse Practitioner Family; Visit Provider Nurse Practitioner Family
DX: Z00.00 Encounter for general adult medical examination without abnormal findings (principal); J45.20 Mild intermittent asthma, uncomplicated; F33.1 Major depressive disorder, recurrent, moderate; G40.209 Localization-related (focal) (partial) symptomatic epilepsy and epileptic syndromes with complex partial seizures, not intractable, without status epilepticus; Z23 Encounter for immunization; G93.49 Other encephalopathy; F41.1 Generalized anxiety disorder; F12.90 Cannabis use, unspecified, uncomplicated; G43.009 Migraine without aura, not intractable, without status migrainosus; Z76.89 Persons encountering health services in other specified circumstances

== ENCOUNTER 2024-04-25 11:25 | Outpatient (REF) | payer OTHER, SELFPAY ==
--- OUTSIDE RECORDS SUMMARY | 2024-04-25 13:37 | XMS_ITS | Clinical Summary ---
Author Organization [employer] Address [address] [facility] [address] [facility] [address] [place] [address] Care Team Providers Care Mortgage Clerk Name Role Phone Unavailable Primary Care Provider Unavailabl e Social History Tobacco Use Types Packs/Day Years Used Date Smoking Tobacco: Never Assessed Sex and Gender Information Value Date Recorded Sex Assigned at Male 12/26/2021 10:32 AM EDT Legal Sex Male 10:32 AM EDT Gender Identity Choose not to disclose 10:32 AM EDT Sexual Orientation Don't know 12/26/2021 10 :32 AM EDT Plan of Treatment Health Maintenance Due Date Last Done Comments Depression Screening 1999 Alcohol/Substance Use Screening 2011 Tobacco Screening 2011 Family Planning (PISQ) 2014 HPV Vaccines (1 - 3-dose series) 2014 DTaP/Tdap/Td Vaccines (1 - Tdap) 2018 Hepatitis B Vaccines (1 of 3 - 19+ 3-dose series) 2018 COVID-19 Vaccine (1 - 2023-2 5 season) 2023 Influenza Vaccine (#1) 2023 Zoster Vaccines (1 of 2) 2049 RSV Patients and Pa tients Aged 60 years or older (1 - 1-dose 75+ series) 2074 HIB Vaccines Aged Out No longer eligi ble based on patient's age to complete this topic Hepatitis A Vaccines Aged Out No long er eligible based on patient's age to complete this topic IPV Vaccines Aged Out No longer eligi ble based on patient's age to complete this topic Meningococcal Vaccine Aged Out No dariela julio cesar eligible based on patient's age to complete this topic Pneumococcal Vaccine: Pediat rics (0 to 5 Years) and At-Risk Patients (6 to 49) Years) Aged Out No longer eligible b ased on patient's age to complete this topic RSV under 20 months Aged Out No longe r eligible based on patient's age to complete this topic Rotavirus Vaccines Aged Out No longer eligible based on patient's age to complete this topic
--- OUTSIDE RECORDS SUMMARY | 2024-04-25 13:37 | XMS_ITS | Encounter Summary ---
Author Organization [facility] Address [address] [facility] [address] [place] [address] Care Team Providers Care Needle Molder Name Role Phone Unavailable Primary Care Provider Unavailabl e Encounter Details Date Type Department Care Team (Latest Contact Info) Description 11/21/2019 Abstract C CONVERSIONS Dental, Provider, DDS Social History Tobacco Use Types Packs/Day Years Used Date Smoking Tobacco: Never Assessed Sex and Gender Information Value Date Recorded Sex Assigned at Male 12/26/2021 10:32 AM EDT Legal Sex Male 10:32 AM EDT Gender Identity Choose not to disclose 10:32 AM EDT Sexual Orientation Don't know 12/26/2021 10 :32 AM EDT documented as of this encounter Plan of Treatment Not on file documented as of this encounter Visit Diagnoses Not on filedocumented in this encounter
[2024-04-25 14:55] LABS: Estimated Average Glucose 100 mg/dL; Hemoglobin A1C 136.8445 umol/L; Hemoglobin A1c % 5.1 % (<6.0); Total Hemoglobin (HGBA1C) 4279.8556 umol/L
[2024-04-25 16:01] LABS: Folate 8.3 ng/mL (> or = 4.0); Vitamin B12 548 pg/mL (200-900)
[2024-04-25 16:48] LABS: Alanine Aminotransferase 24 U/L (0-40); Albumin Level 4.8 g/dL (3.5-5.0); Anion Gap 14 (12-20); Aspartate Amino Transferase 26 U/L (5-37); Bilirubin Total 1.2 mg/dL (0.0-1.0); Blood Urea Nitrogen 19 mg/dL (9-16); Calcium 10.3 mg/dL (8.4-10.2); Carbon Dioxide 25 mmol/L (22-29); Chloride 107 mmol/L (96-108); Cholesterol 157 mg/dL (<200); Estimated Glomerular Filt Rate > 60; Glucose Random 89 mg/dL (60-115); HDL Cholesterol 35 mg/dL (>40); LDL Cholesterol Calculated 96 mg/dL (<100); Potassium 3.8 mmol/L (3.3-5.1); Sodium 142 mmol/L (135-145); TSH reflex Free T4 1.08 uIU/mL (0.32-4.0); Total Protein 8.7 g/dL (6.5-8.0); Triglycerides 130 mg/dL (<150)
[2024-04-25 17:54] LABS: Alkaline Phosphatase 51 U/L (39-117)
== END 2024-04-25 11:26 | disposition home or self-care (01) ==
LOC: HO.WFDLDS 11:25
PROVIDERS: Visit Provider Nurse Practitioner Family
DX: Z00.00 Encounter for general adult medical examination without abnormal findings (principal); Z11.3 Encounter for screening for infections with a predominantly sexual mode of transmission
CPT/HCPCS: 36415; 80053; 80061; 82607; 82746; 83036; 84443

== ENCOUNTER 2024-05-21 12:40 | Outpatient (AMB) | payer OTHER, SELFPAY ==
--- NOTE | 2024-05-21 12:51 | AM.OFFWIN_ITS ---
Intake Vital Signs 3 05/21/24 12:54 Height 5 ft 10 in Weight 166 lb BMI 23.8 BP 122/72 Blood Pressure Location Lt brachial Position Sitting Respiration 12 Pulse 76 Pulse Source Pulse Oximeter Temp 97.3 F Temp Source Oral Pulse Oximetry (%) 97 Oxygen Delivery Method Room Air Intake Visit Reasons: skin rash Intake Note: Patient c/o rash on both arms and both legs x 1 month Patient Tobacco Use Status: Never used Tobacco Allergies No Known Allergies [No Known Allergies*] Allergy (Verified 05/21/24 12:59) Medication List - Last Reconciled 05/21/24 by Sherry Skelton, POLITICAL SCIENTIST- albuterol sulfate 90 mcg/actuation (Ventolin HFA) 2 puffs inhalation Q4-6H PRN amitriptyline 25 mg PO BEDTIME bupropion HCl XL 150 mg PO QAM fluticasone propionate 100 mcg/actuation 1 inh inhalation DAILY guanfacine 1 mg PO BEDTIME hydroxyzine pamoate 25 mg PO BEDTIME PRN ipratropium-albuterol 20-100 mcg/actuation (Combivent Respimat) 1 puff inhalation QID montelukast 10 mg PO DAILY oxcarbazepine 300 mg PO BID Do you need a note to return to daycare/school/sports/work: No HPI HPI Comments 2 History of Present Illness0 Details 24-year-old male with chronic encephalop athy, major depressive disorder, generalized anxiety disorder, complex partial seizure disorder, epilepsy, migraine, current marijuana use History - The patient is a 24-year-old male pres enting with a rash on the arms and legs. - The rash began on both arms approximat pepe one month ago and later spread to the legs. - The patient reports an intense urge to scratch the rash, although it is not painful. - Currently, no rash appears in the groi n area. - Previous treatments with antibiotic cr eams were attempted by the patient at home without significant improvement. - No other family members or people clos e to the patient are experiencing similar symptoms. - The patient reports a usual home routi ne and minimal outside activity due to sociophobia, with a dog present in the home. Mood is stable Sz are well managed Results - Labs 03/2024: Electrolytes normal; kidn ey function appears normal; no indicators of diabetes; cholesterol levels within normal limits. - No other diagnostic tests performed or reported. Discussion Notes I discussed with the patient the diagnosis of tinea corporis, also known as ringworm, which is consistent with the rash and other symptoms described. I explained that this condition is common and, although treatable, can spread. The recommended treatment is the application of clotrimazole cream, and I advised using the medication as directed. I instructed the patient to avoid scratching to reduce the spread and risk of secondary infections. I emphasized the importance of using separate, clean towels for personal use and advised laundering bed linens in hot water. I indicated that the condition may take a few weeks to resolve fully but confirmed that improvement should be noticeable with proper application of the cream. The patient's blood work was reviewed, showing all results within normal ranges. The pharmacy on record was confirmed, and I sent the prescription for medication to that location. We discussed that additional refills are available due to the possible requirement for prolonged treatment. I reassured the patient about the anticipated resolution and invited any further questions. The patient raised no additional inquiries and expressed understanding of the care plan. Assessment and Plan 1. Tinea Corporis (Ringworm): The patien t exhibits a rash consistent with tinea corporis. A topical antifungal cream, clotrimazole, was prescribed, and instructions were given for careful application on the affected areas. I advised maintaining good hygiene, including using separate towels and washing linens in hot water, to prevent spreading the infection. Refills are arranged to ensure continued use for full recovery over the coming weeks. 2. Sociophobia: The patient's sociophobi a, although not addressed directly today, is acknowledged as part of his healthcare and social history, with consideration for future mental health support and counseling discussed. 3. NESSA, MDD and Sz: cont care w/ team Patient Instructions - Apply clotrimazole cream on the rash a s directed, covering all affected areas. - Use a clean towel each time you shower and wash bed linens in hot water. - Avoid scratching the rash to prevent s preading. - Follow up with refills if necessary, a s improvement may take weeks. - Return for further evaluation if the r myron does not improve. Consent Patient was informed and verbally consented to the use of an ambient scribe for clinic note documentation during this visit. Exam Awake alert NAD Accompanied by Mom Rash on ext x 4 PFSH Medical History (Updated 05/21/24 @ 13:07 by Sherry Skelton [facility]) Anxiety and depression Asthma Compulsive behavior disorder Encephalopathy Epilepsy Insomnia Migraines Seizure disorder Surgical History (Updated 03/07/24 @ 11:47 by Angel Strong MA) No pertinent past surgical history Family History (Updated 03/07/24 @ 11:44 by Angel Strong MA) Mother Mental health disorder Maternal Grandmother Diabetes Thyroid disorder Social History (Updated 03/07/24 @ 11:42 by Angel Strong MA) Household Members: Family Household Members Other:: mother Both parents involved: No Caregiver staying overnight: No Housing: Apartment Are you a primary manager primary care to a significant other at home: No Do you presently have visiting nurse or other home services: No 75 years or older and lives alone: No Alcohol intake: never Patient Tobacco Use Status: Never used Tobacco e-Cigarette/Vaping Use: Never Used Second Hand Smoke Exposure: No Current occupational status: unemployed Cognitive needs: Yes Hearing needs: No Vision needs: No Physical Exam Vital Signs: Last Vital Signs Temp 97.3 F 05/21/24 12:54 Pulse 76 05/21/24 12:54 Resp 12 05/21/24 12:54 BP 122/72 05/21/24 12:54 Pulse Ox 97 05/21/24 12:54 Oxygen Delivery Method Room Air 05/21/24 12:54 BMI result Body Mass Index 23.8 Assessment & Plan Assessment & Plan (1) Tinea corporis: Code(s): B35.4 - Tinea corporis (2) NESSA (generalized anxiety disorder): Code(s): F41.1 - Generalized anxiety disorder (3) MDD (major depressive disorder), recurrent episode: Code(s): F33.9 - Major depressive disorder, recurrent, unspecified Qualifiers: Major depression episode severity: moderate Qualified Code(s): F33.1 - Major depressive disorder, recurrent, moderate (4) Epilepsy with partial complex seizures: Code(s): G40.209 - Localization-related (focal) (partial) symptomatic epilepsy and epileptic syndromes with complex partial seizures, not intractable, without status epilepticus Plan . Medications: New 2 clotrimazole 1% 1 appl topical BID 4 weeks 90 grams 2RF Patient Instructions: - Apply clotrimazole cream on the rash as directed, covering all affected areas. - Use a clean towel each time you shower and wash bed linens in hot water. - Avoid scratching the rash to prevent spreading. - Follow up with refills if necessary, as improvement may take weeks. - Return for further evaluation if the rash does not improve. Coding Level of Care Code Est Pt Level 4 (45465) Diagnoses Tinea corporis B35.4 NESSA (generalized anxiety disorder) F41.1 Moderate episode of recurrent major depressive disorder F33.1 Major depression episode severity: moderate Epilepsy with partial complex seizures G40.209
[2024-05-21 12:54] VITALS: BP 122/72; PULSE 76; RESP 12; TEMP 36.3; O2SAT 97; BMI 23.8
--- OUTSIDE RECORDS SUMMARY | 2024-05-21 14:57 | XMS_ITS | Clinical Summary ---
Author Organization [employer] Address [address] [place] [address] Care Team Providers Care Railcar Mechanic Name Role Phone Unavailable Primary Care Provider [...]
--- OUTSIDE RECORDS SUMMARY | 2024-05-21 14:57 | XMS_ITS | Encounter Summary ---
Author Organization [employer] [facility] Address [address] [place] [address] Care Team Providers Care Business Continuity Planning Director Name Role Phone Unavailable Primary Care Provider [...]
== END 2024-05-21 13:07 | disposition home or self-care (01) ==
LOC: HO.HMCFM 12:40
PROVIDERS: PCP Nurse Practitioner Family; Visit Provider Nurse Practitioner Family
DX: B35.4 Tinea corporis (principal); F41.1 Generalized anxiety disorder; F33.1 Major depressive disorder, recurrent, moderate; G40.209 Localization-related (focal) (partial) symptomatic epilepsy and epileptic syndromes with complex partial seizures, not intractable, without status epilepticus

== ENCOUNTER → 2024-05-21 12:40 | Outpatient (BNVA) | payer OTHER, SELFPAY | PROVIDERS: PCP Nurse Practitioner Family; Visit Provider Nurse Practitioner Family | DX: B35.4 Tinea corporis (principal); F41.1 Generalized anxiety disorder; F33.1 Major depressive disorder, recurrent, moderate | CPT/HCPCS: 99212 ==

== ENCOUNTER → 2024-08-06 07:54 | Outpatient (BNV) | payer OTHER, SELFPAY | PROVIDERS: Emergency Provider Emergency Medicine; PCP Nurse Practitioner Family; Visit Provider Radiology Diagnostic Radiology | DX: R06.02 Shortness of breath (principal) | CPT/HCPCS: 71045 ==

== ENCOUNTER 2024-08-06 08:09 | Emergency (ER) | payer OTHER, SELFPAY ==
--- NOTE | ~2024-08-06 | XR_ITS ---
EXAMINATION: XR CHEST 1 VIEW HISTORY: shortness of breath COMPARISON: Comparison is made with the prior examination dated 11/22/2017. FINDINGS: A single AP portable view of the chest performed at 8:54 AM is submitted. The lungs are expanded and clear. There is no pleural effusion, pneumothorax, or pulmonary vascular congestion. The heart is normal in size. The bones are intact. XR/XR chest 1V IMPRESSION: No acute cardiopulmonary abnormality. Electronically signed by: Jesus Stevens MD 08/06/2024 09:12 AM EDT
[2024-08-06 08:26] VITALS: BP 124/65; PULSE 102; RESP 18; TEMP 36.6; O2SAT 97; BMI 23.7
[2024-08-06 09:20] LABS: Influenza A PCR NEGATIVE (Negative); Influenza B PCR NEGATIVE (Negative); Resp Syncy Virus RNA Qual PCR NEGATIVE (Negative); SARS COV2 PCR INHOUSE NEGATIVE (Negative)
--- NOTE | 2024-08-06 09:39 | ED_ITS ---
HPI - Asthma General Chief Complaint: Upper Respiratory Symptoms Stated Complaint: asthma attack Time Seen by Provider: 08/06/24 09:37 Source: patient Mode of arrival: ambulatory Limitations: no limitations History of Present Illness ED Provider: DARRYL COOPER Narrative: 24 yo male with PMH of asthma no prior steroid use who notes he has had nasal congestion, wheezing for one day. No fevers, no sputum production, no recent travel. He notes his INH is not helping and he ran out. He is not a smoker. MD complaint: asthma attack , shortness of breath and wheezing Onset (ago): day(s) (1) Severity: moderate Context: none known Associated symptoms: dry cough Asthma History: childhood onset Treatments Prior to Arrival: inhaled bronchodilator Related Data Home Medications ?Medication ?Instructions ?Recorded ?Confirmed albuterol sulfate 90 mcg/actuation 2 puff inhalation Q4-6H PRN 03/07/24 05/21/24 aerosol inhaler (Ventolin HFA) amitriptyline 25 mg tablet 25 mg PO BEDTIME 03/07/24 05/21/24 bupropion HCl 150 mg 24 hr tablet, 150 mg PO QAM 03/07/24 05/21/24 extended release fluticasone propionate 100 1 inh inhalation DAILY 03/07/24 05/21/24 mcg/actuation blister powder for inhalation guanfacine 1 mg tablet 1 mg PO BEDTIME 03/07/24 05/21/24 hydroxyzine pamoate 25 mg capsule 25 mg PO BEDTIME PRN 03/07/24 05/21/24 montelukast 10 mg tablet 10 mg PO DAILY 03/07/24 05/21/24 oxcarbazepine 300 mg tablet 300 mg PO BID 03/07/24 05/21/24 Previous Rx's ?Medication ?Instructions ?Recorded ipratropium 20 mcg-albuterol 100 1 puff inhalation QID #4 grams 03/07/24 mcg/actuation mist for inhalation (Combivent Respimat) clotrimazole 1 % topical cream 1 appl topical BID 4 weeks #90 06/04/24 grams albuterol sulfate 90 mcg/actuation 2 inh inhalation Q4-6H PRN 08/06/24 breath activated powder inhaler shortness of breath or wheezing #1 ea prednisone 20 mg tablet 40 mg (2 x 20 mg) PO DAILY 4 days 08/06/24 #8 tabs Allergies Allergy/AdvReac Type Severity Reaction Status Date / Time No Known Allergies Allergy Verified 08/06/24 08:27 [No Known Allergies*] Review of Systems Review of Systems: Constitutional : No Fever, No Chills ENT/Mouth : No Hoarseness, No sore throat, No Rhinorrhea Eyes: No Redness, No Discharge, No Vision Changes Cardiovascular : No Chest Pain, positive SOB, positive Dyspnea on Exertion, No Edema Respiratory : positive Cough, No Sputum, positive Wheezing, Gastrointestinal : No Nausea, No Vomiting, No Diarrhea, No abdominal Pain Genitourinary : No Dysuria, No Hematuria Musculoskeletal : No joint pain, No Myalgias Skin : No rash Neuro : No Weakness, No Numbness, No Headache Psych : No anxiety, depression Heme/Lymph: No Bruising, No Bleeding Endocrine : No Polyuria, No Polydipsia All other systems reviewed and are negative [facility] Past Medical History Attestation statement: The following information was validated with the patient. Source: old records reviewed Medical History Seizure disorder Encephalopathy Compulsive behavior disorder Migraines Epilepsy Insomnia Anxiety and depression Asthma Surgical History No pertinent past surgical history Family History Family History (Updated 03/07/24 @ 11:44 by Angel Strong MA) Mother Mental health disorder Maternal Grandmother Diabetes Thyroid disorder Social History Social History Household Members: Family Household Members Other:: mother Housing: Apartment Are you a primary care consultant to a significant other at home: No Do you presently have visiting nurse or other home services: No Alcohol intake: never Patient Tobacco Use Status: Never used Tobacco Smoked in Last 30 Days: No e-Cigarette/Vaping Use: Never Used Second Hand Smoke Exposure: No Use of substances other than those prescribed or required for medical reasons: No Advance Directives: No Advance Directives Information Provided: No Do you have a plan to hurt others: No Plan Current occupational status: unemployed Cognitive needs: Yes Hearing needs: No Vision needs: No Physical Exam Vital Signs: Vital Signs: Last Vital Signs Temp 98.8 F 08/06/24 10:28 Pulse 125 H 08/06/24 10:28 Resp 20 08/06/24 10:28 BP 148/88 H 08/06/24 10:28 Pulse Ox 98 08/06/24 10:28 O2 Del Method Room Air 08/06/24 10:28 BMI result Body Mass Index 23.7 Appearance: Alert. Oriented X3. No acute distress. Eyes: Pupils equal, round and reactive to light. ENT: Pharynx normal. Neck: Normal inspection. Neck supple. CVS: Normal heart rate and rhythm. Pulses normal. Respiratory: No respiratory distress. Breath sounds mild exp wheezes Abdomen: Soft and nontender. Skin: Skin warm and dry. Normal skin color. Normal skin turgor. Extremities: No lower extremity edema. No calf ttp Neuro: Oriented X 3. No motor deficit. No sensory deficit. CN2-12 intact Course Course Course Narrative: very mild faint exp wheeze left side stable for DC no hypoxia, tachycardia due to neb Medications Administered Discontinued Medications Generic Name Dose Route Start Last Admin Trade Name Freq PRN Reason Stop Dose Admin Albuterol Sulfate 2 puff 08/06/24 10:20 08/06/24 10:27 Albuterol Sulfate 90 Mcg 8 Gm Inhaler INHALE 08/06/24 10:21 Not Given ONCE ONE Albuterol Sulfate 2.5 mg/ 0 mg 08/06/24 09:55 08/06/24 10:00 Albuterol/Ipratropium 3 ml INHALE 08/06/24 09:56 5 dose ONCE ONE Administration Prednisone 60 mg 08/06/24 09:38 08/06/24 09:59 Prednisone 20 Mg Tablet PO 08/06/24 09:39 60 mg ONCE ONE Administration Medical Decision Making Medical Decision Making [facility] Narrative: 24 yo male with PMH of asthma but no prednisone that he can remember he has no fevers, no sputum but wheezing x 1 day. At this time will give steroids, nebs a nd obtain viral panel and CXR. He is not labored or in distress on exam. Differential Diagnosis Differential Diagnoses: The differential diagnosis associated with the presentation includes asthma, URI Admission/Observation Consideration of admission/observation: Escalation of care including admission/observation considered no hypoxia, clear on DC given inh and steroid Rx Lab Data [facility] Lab Attestation statement: I reviewed the patient's lab results. Labs: Lab Results 08/06/24 Range/Units 08:32 Influenza Type A (PCR) NEGATIVE (Negative) Influenza Type B (PCR) NEGATIVE (Negative) RSV RNA Qual (PCR) NEGATIVE (Negative) SARS-CoV-2 RNA (RT-PCR) NEGATIVE (Negative) Independent Interpretation I performed an independent interpretation of an: Plain X-Ray (normal ) Radiology Impression Discussion of test interpretation with radiology: I have reviewed the radiologist's reading. External Record Review External record reviewed: Outpatient record Prescription Management I considered prescription management with: Other Discharge Plan Discharge Clinical Impression: Asthma Qualifiers: Asthma severity: moderate Asthma persistence: persistent Asthma complication type: with acute exacerbation Qualified Code(s): J45.41 - Moderate persistent asthma with (acute) exacerbation Patient Disposition: Home, Self-Care Instructions: Asthma (ED) Additional Instructions: xray and swabs are normal no COVID, flu, rsv chest xray clear return for worsening symptoms or concerns take the prednisone with food Prescriptions: New prednisone 20 mg tablet 40 mg PO DAILY 4 Days Qty: 8 0RF albuterol sulfate 90 mcg/actuation aerosol powdr breath activated 2 inh inhalation Q4-6H PRN (Reason: shortness of breath or wheezing) Qty: 1 2RF No Action clotrimazole 1 % cream 1 appl topical BID 28 Days Qty: 90 2RF oxcarbazepine 300 mg tablet 300 mg PO BID amitriptyline 25 mg tablet 25 mg PO BEDTIME guanfacine 1 mg tablet 1 mg PO BEDTIME albuterol sulfate [Ventolin HFA] 90 mcg/actuation HFA aerosol inhaler 2 puff inhalation Q4-6H PRN montelukast 10 mg tablet 10 mg PO DAILY fluticasone propionate 100 mcg/actuation blister with device 1 inh inhalation DAILY hydroxyzine pamoate 25 mg capsule 25 mg PO BEDTIME PRN bupropion HCl 150 mg tablet extended release 24 hr 150 mg PO QAM Combivent Respimat 20-100 mcg/actuation mist 1 puff inhalation QID Qty: 4 2RF Rx Instructions: space evenly during waking hours Interventions: ED Discharge Assessment Last Done: 08/06/24 10:28 Discharge Date/Time: 08/06/24 10:28 Print Language: Israeli
[2024-08-06] MEDS: predniSONE 20 MG TABLET 60 MG PO (09:59)
[2024-08-06] MEDS: Albuterol Sulfate 2.5 MG, Albuterol/Iprat 2.5/0.5MG 3 ML 3 ML INHALE (10:00)
[2024-08-06 10:02] VITALS: PULSE 117; RESP 19; O2SAT 97
[2024-08-06 10:17] VITALS: BP 148/88; PULSE 125; RESP 20; TEMP 37.1; O2SAT 98
[2024-08-06 10:28] VITALS: BP 148/88; PULSE 125; RESP 20; TEMP 37.1; O2SAT 98
--- OUTSIDE RECORDS SUMMARY | 2024-08-06 10:39 | XMS_ITS | Encounter Summary ---
Author Organization [employer] [facility] Address [address] [place] [address] Care Team Providers Care Drag Seiner Name Role Phone Unavailable Primary Care Provider [...]
== END 2024-08-06 10:28 | disposition home or self-care (01) ==
PROVIDERS: Emergency Provider Emergency Medicine; PCP Nurse Practitioner Family
DX: J45.41 Moderate persistent asthma with (acute) exacerbation (principal); Z03.818 Encounter for observation for suspected exposure to other biological agents ruled out
CPT/HCPCS: 0241U; 71045; 94640; 99284; 99285

== ENCOUNTER 2024-08-11 10:57 | Outpatient (AMB) | payer OTHER, SELFPAY ==
--- NOTE | 2024-08-11 11:24 | MHC.PC.OV ---
Vital Signs 08/11/24 11:32 Height 5 ft 9 in Weight 163 lb 6 oz BMI 24.1 BP 110/67 Blood Pressure Location Lt brachial Position Sitting Respiration 12 Pulse 68 Pulse Source Pulse Oximeter Temp 97.6 F Temp Source Oral Pulse Oximetry (%) 99 Oxygen Delivery Method Room Air Intake Visit Reasons: NEROLOGY REFERRAL/AUTISM TEST Intake Note: Patient was seen in ER [facility] on 08/06/24. Patient c/o coughing, sore throat and coughing up phlegm (white clear). Patient is also wondering if she can get a nebulizer for home due to his chronic asthma since a child. Patient also wants a referral for housing quality standard inspector due to his asthma. Anhydrous Ammonia Production Supervisor Required: Yes Anhydrous Ammonia Production Supervisor Language: Director Of Coding Name: Tiffanie Mario [id number] Allergies No Known Allergies [No Known Allergies*] Allergy (Verified 08/11/24 12:15) Medication List - Last Reconciled 08/11/24 by Sherry Skelton, SECOND VP HR ASSESSMENT- albuterol sulfate 90 mcg/actuation (Ventolin HFA) 2 puffs inhalation Q4-6H PRN amitriptyline 25 mg PO BEDTIME bupropion HCl XL 150 mg PO QAM clotrimazole 1% 1 appl topical BID 4 weeks fluticasone propionate 100 mcg/actuation 1 inh inhalation DAILY guanfacine 1 mg PO BEDTIME hydroxyzine pamoate 25 mg PO BEDTIME PRN ipratropium-albuterol 20-100 mcg/actuation (Combivent Respimat) 1 puff inhalation QID montelukast 10 mg PO DAILY oxcarbazepine 300 mg PO BID Tobacco use date assessed: 08/11/24 Dental Screening Dental Screen Date: 08/11/24 Did you have a dental visit in the last 12 months?: Yes Did you have a dental problem in the last 6 months where you did not have access to dental care?: No Was dental information given to patient?: Patient has dentist HPI HPI Comments History of Present Illness Details Anhydrous Ammonia Production Supervisor: [id number] 24-year-old male with chronic encephalopathy, major depressive disorder, generalized anxiety disorder, complex partial seizure disorder, epilepsy, migraine, current marijuana use, asthma History of Present Illness - The patient is a 24-year-old male presenting for [facility] ED visit for asthma exac. Work up reviewed; completed prednisone, felt better, cont to wheeze. - CombiVent use reported with refill issues. has not been taking - Montelukast used regularly without issue. - Suspected diagnosis of Autism Spectrum Disorder, previously misdiagnosed, per Mom. He is not worried about this. She is requesting referrals to: [facility] [address] [place], [place] Dr Rafael Wang [facility] [address] [facility] [id number] Mood is stable Sz are well managed Review of Systems - Respiratory: Reports wheezing post-hospital discharge. Pharynx: sore left throat, started today. - Neurological: Denies confirmed diagnosis of Autism Spectrum Disorder, although suspected by family. - Medication Use: Reports using CombiVent inhaler, completed prednisone, currently taking montelukast. Exam Awake alert NAD Accompanied by Mom Pharynx mild erythema, no exudate, no adenopathy RRR Ins/exp wheezes throughout Discussion Notes During the consultation, we discussed the following: For asthma management, the critical issue was the patient's difficulty obtaining the CombiVent inhaler, a controller medication critical for asthma management. I confirmed that a year's worth of refills had been sent previously, suggesting pharmacy or insurance complications might be affecting access. I agreed to refill the CombiVent inhaler and prescribed additional prednisone due to continued wheezing. I emphasized the necessity of regular inhaler use to reduce lung inflammation and the supportive role of montelukast, prescribing what was needed. We discussed potential referral to an asthma specialist for further management. Concerning the suspected Autism Spectrum Disorder, I reviewed potential referral options given the constraints of the existing insurance coverage, advising communication with the insurance provider for an in-network provider list to expedite testing arrangements. I agreed to assist once this information was available. For the throat discomfort reported by the patient, I found no infectious signs during examination, advising salt water gargles. Lastly, a referral to [facility] for further care was arranged, accounting for past appointment issues at a different location. Smoking cessation was encouraged. Assessment and Plan 1. Asthma - CombiVent refill for asthma control - Prednisone for wheezing - Montelukast for maintenance -pulm referral offered - NN referral to help prevent admissions and provide dz edu 2. Suspected Autism Spectrum Disorder - per Mom, i do not have any concerns about this. - Discussed history, awaiting insurance network details for referral 3. Ongoing Wheezing - Provided prednisone, ensure inhaler use with pharmacy guidance 4. Sociophobia: The patient's sociophobia, although not addressed directly today, is acknowledged as part of his healthcare and social history, with consideration for future mental health support and counseling discussed. 5 NESSA, MDD and Sz: cont care w/ team Patient Instructions - Use the CombiVent inhaler as prescribed daily. - Take prednisone as prescribed for four days. - Continue using montelukast regularly. - Perform salt water gargles for throat discomfort. - Contact your insurance for network providers for autism assessment. - Follow up with [facility] regarding inhaler refills. - Updraft machine to be sent along w/ neb solution - RTO 6 months CPE, sooner PRN Consent Consent was obtained verbally from the patient?s mother, acting as the legal guardian. I discussed the refill of CombiVent, its necessity for controlling asthma, and the short-term use of prednisone for symptom control. The risks and benefits of these medications were communicated clearly. Regarding the suspected Autism Spectrum Disorder, it was explained the need to consult insurance for in-network options, and the intention to facilitate referrals accordingly. The patient and guardian acknowledged understanding and agreed to the proposed plan. Patient was informed and verbally consented to the use of an ambient scribe for clinic note documentation during this visit. Total time spent caring for the patient today was 60 minutes. This includes time spent before the visit reviewing the chart, time spent during the visit, and time spent after the visit on documentation, reviewing laboratory results, diagnostic imaging, medications, performing a medically necessary evaluation, counseling on diagnoses, care coordination, ordering appropriate tests, ordering appropriate medications, review of tests performed by other providers, reporting test results with the patient, communication with other healthcare providers. [facility] Medical History Seizure disorder Encephalopathy Compulsive behavior disorder Migraines Epilepsy Insomnia Anxiety and depression Asthma Surgical History No pertinent past surgical history Family History (Updated 03/07/24 @ 11:44 by Angel Strong MA) Mother Mental health disorder Maternal Grandmother Diabetes Thyroid disorder Social History Household Members: Family Household Members Other:: mother Both parents involved: No Caregiver staying overnight: No Housing: Apartment Are you a primary health care / medical job titles to a significant other at home: No Do you presently have visiting nurse or other home services: No 75 years or older and lives alone: No Alcohol intake: never Patient Tobacco Use Status: Never used Tobacco e-Cigarette/Vaping Use: Never Used Second Hand Smoke Exposure: No Current occupational status: unemployed Cognitive needs: Yes Hearing needs: No Vision needs: No Questionnaire PHQ-9 Over the last 2 weeks, how often have you been bothered by any of the following problems? 1. Little interest or pleasure in doing things: not at all 2. Feeling down, depressed, or hopeless: not at all 3. Trouble falling or staying asleep, or sleeping too much: not at all 4. Feeling tired or having little energy: not at all 5. Poor appetite or overeating: not at all 6. Feeling bad about yourself - or that you are a failure or have let yourself or your family down: not at all 7. Trouble concentrating on things, such as reading the newspaper or watching television: not at all 8. Moving or speaking so slowly that other people could have noticed. Or the opposite - being so fidgety or restless that you have been moving around a lot more than usual: not at all 9. Thoughts that you would be better off or of hurting yourself in some way: not at all Total score: 0 Depression Screening Interpretation: Negative Depression Screening Done: Yes [id number] - PHQ-9 Billing: Yes Source: Developed by Drs. Jesus Funes, Leonora Guevara, Ahmet Montero and colleagues, with an educational lolly from [employer]. Thrive Questionnaire Date Thrive assessed: 08/11/24 I am a: Parent/Caregiver What is your living situation today?: I have a steady place to live Within the past 12 months, did the food you bought not last and you didn't have the money to get more?: Never true Within the past 12 months, did you worry whether your food would run out before you got money to buy more?: Never true Do you have trouble paying for medicines?: No Do you have trouble getting transportation to medical appointments?: No Do you have trouble paying your heating and electricity bill?: No Do you have trouble taking care of your child, family member or friend?: No Do you have trouble with day-to-day activities such as bathing, preparing meals, shopping, managing finances, etc.?: No Are you currently unemployed and looking for a job?: No Are you interested in more education?: No Please select the resources that you would like help with: None Currently or been in a relationship where the following occur: I choose not to answer THRIVE Score: 0 NESSA-7 AMB Questionnaire NESSA-7 Date NESSA - 7 assessed: 08/11/24 Feeling nervous, anxious, or on edge: 0 = Not at all Not being able to stop or control worryin = Not at all Worrying too much about different things: 0 = Not at all Trouble relaxin = Not at all Being so restless that it is hard to sit still: 0 = Not at all Becoming easily annoyed or irritable: 0 = Not at all Feeling afraid as if something awful might happen: 0 = Not at all Total NESSA-7 score (0-4 normal; 5-9 mild; 10-14 moderate; 15-21 severe): 0 Source: Developed by Drs. Jesus Funes, Leonora Guevara, Ahmet Montero and colleagues, with an educational lolly from [employer]. NESSA-7 Assessment Billing NESSA-7 Assessment Tool: NESSA-7 Assessment 18843 ACT Questionnaire In the past 4 weeks, how much of the time did your asthma keep you from getting as much done at work, school or at home?: Most of the time During the past 4 weeks, how often have you had shortness of breath?: More than once a day During the past 4 weeks, how often did your asthma symptoms wake you up at night or earlier than usual in the morning?: Once or twice per week During the past 4 weeks, how often have you had to use your rescue inhaler or nebulizer medication?: More than 3 times per day How would you rate your asthma control during the past 4 weeks?: Not controlled at all Score: 9 Physical exam (Primary Care) Vital Signs: Last Vital Signs Temp 97.6 F 08/11/24 11:32 Pulse 68 08/11/24 11:32 Resp 12 08/11/24 11:32 BP 110/67 08/11/24 11:32 Pulse Ox 99 08/11/24 11:32 Oxygen Delivery Method Room Air 08/11/24 11:32 BMI result Body Mass Index 24.1 Tobacco/Smoking Status: Tobacco use Status Tobacco use date assessed 08/11/24 08/11/24 11:28 Patient Tobacco Use Status Never used Tobacco 08/11/24 11:28 e-Cigarette/Vaping Use Never Used 08/11/24 11:28 PHQ-9: PHQ-9 Score PHQ-9: Total score 0 08/11/24 12:15 Depression Screening Interpretation: Negative Thrive Assessment: Date of Thrive Assessment Date Thrive assessed 08/11/24 08/11/24 11:28 Currently or been in a relationship where the following occur: I choose not to answer Coding Level of Care Code Est Pt Level 5 (96124) Complex EM visit Add On G2211 Diagnoses Hospital discharge follow-up Z09 Mild intermittent asthma without complication J45.20 Asthma complication type: uncomplicated Encephalopathy chronic G93.49 Encounter for autism screening Z13.41 NESSA (generalized anxiety disorder) F41.1 Epilepsy with partial complex seizures G40.209 Marijuana use, continuous F12.90 Moderate episode of recurrent major depressive disorder F33.1 Major depression episode severity: moderate Additional Codes NESSA-7 Assessment Billing - NESSA-7 Assessment Tool: NESSA-7 Assessment 04198 ([id number]) PHQ-9 - 10611 - PHQ-9 Billing: Yes ([id number]) Assessment & Plan Assessment & Plan (1) Hospital discharge follow-up: Code(s): Z09 - Encounter for follow-up examination after completed treatment for conditions other than malignant neoplasm Category: Medical (2) Mild intermittent asthma: Code(s): J45.20 - Mild intermittent asthma, uncomplicated Category: Medical Qualifiers: Asthma complication type: uncomplicated Qualified Code(s): J45.20 - Mild intermittent asthma, uncomplicated (3) Encephalopathy chronic: Code(s): G93.49 - Other encephalopathy Category: Medical (4) Encounter for autism screening: Code(s): Z13.41 - Encounter for autism screening Category: Medical (5) NESSA (generalized anxiety disorder): Code(s): F41.1 - Generalized anxiety disorder Category: Medical (6) Epilepsy with partial complex seizures: Code(s): G40.209 - Localization-related (focal) (partial) symptomatic epilepsy and epileptic syndromes with complex partial seizures, not intractable, without status epilepticus Category: Medical (7) Marijuana use, continuous: Comment: Marijuana: Natural = Safe, Right? Marijuana is readily available to use in many states in the [facility]. Understanding the possible risks of use is important to ensure the safety. No matter how you use marijuana (smoke it, eat it, or apply to your skin), it may cause problems with both short term and exterminator helper termite use How marijuana affects your BRAIN: Potential effects from Short Term Use Poor focus, memory and reaction time Difficulty with problem solving Hallucinations, paranoia, anxiety Potential effects from Nurse Clinician Use Memory problems and trouble learning new things Depression, hallucinations, paranoia, anxiety, worsening PTSD symptoms addiction Brain. It is not safe to drive while on marijuana. It makes it hard to dressage judge distance, concentrate, react quickly to signals and sounds, be alert and coordinated. If alcohol is combined, this risk is even higher! In regular users, some of the effects from usp use may last for days or even weeks after stopping marijuana. How inhaling marijuana affects your LUNGS: Inhaling harmful chemicals Gases Small particles Carcinogens (toxins linked to cancer) Breathing problems similar to tobacco smokers Daily cough with mucus Difficulty breathing Lung infections (bronchitis, pneumonia) Lungs How marijuana affects your HEART: Increases risk of heart attack Within the first hour of smoking Increases heart rate 20?100% increase after smoking Increase lasts up to three hours Changes in heart rhythm Feels like your heart skips a beat, or is fluttering, or beating too fast or too slow Heart Is it SAFE to use marijuana with other medications? A combination that can be concerning is the use of opioids and/or benzodiazepines with marijuana. Opioids + Benzodiazepines + Marijuana: Drowsiness: All three can cause drowsiness. Reaction time: All three can reduce reaction time. Do not drive or operate machinery. Overdose: Opioids and Benzodiazepines can cause reduced breathing and in some cases, breathing can stop and a person can . Marijuana containing higher levels of THC may cause difficulty with thinking and memory and this could result in medication errors where extra doses of opioids, benzodiazepines, or other medications may be taken. What is the harm? Example of Opioids Morphine (MS Contin?, Zakiya?) Oxycodone (Percocet?, OxyContin?) Hydrocodone (Vicodin?, Rosston?) Fentanyl (Duragesic?) Methadone Heroin Example of Benzodiazepines Lorazepam (Ativan?) Diazepam (Valium?) Alprazolam (Xanax?) Clonazepam (Klonopin?) If you have specific questions about the safety of using marijuana with other medications, please contact your provider or pharmacist. Some marijuana users can become addicted! You can have problems with marijuana withdrawal. You may have withdrawal symptoms the day after you stop using. These can get worse 2 to 3 days after using and can take 1 to 2 weeks or longer to go away. Recovery and Treatment Contact your provider or health care team if you are having concerns about your marijuana use or to learn more about available treatment services. The marijuana plant is not an FDA-approved medicine: The U.S. Food and Drug Administration (FDA) has not approved the marijuana plant as a medication due to lack of studies on the risks and benefits. Marijuana contains over 100 chemical substances known as cannabinoids. Some of these, like tetrahydrocannabinol (THC), have mind altering effects and can be intoxicating. Cannabidiol (CBD), another cannabinoid, does not cause the same ?high? users of THC experience. THC has been studied for the treatment of several conditions, including nausea and increasing appetite. CBD is similarly being studied for a number of conditions, including childhood epilepsy and inflammation. What is different between the marijuana product I get from the marijuana shop and a prescription from the pharmacy? The right dose of any medicine is important. A specific dose of THC is approved to treat nausea, but high doses of THC may cause vomiting. The ingredients in a medicine must be measured and stay the same from one dose to the next. The marijuana plant contains unknown ingredients that change from plant to plant. This makes it hard to control the ?dose? of marijuana needed to treat a condition and use it in the same way we use other medicines. Future studies are ongoing to establish the role of the marijuana plant and the cannabinoids found in the plant for treatment of medical conditions. If you have questions about using a marijuana product for a medical condition, please discuss this with your medical provider to determine the most appropriate treatment for you. [place] Providers are not able to prescribe marijuana products. Information in this document was compiled by the [facility] in Substance Abuse treatment and Education (CESTE). It contains information from factsheets by the National [place] on Drug Abuse (www.drugabuse.gov) and presentation by Lars Machado Trafton, J., & Nicolasa Mcgrath (2010) entitled ?What providers need to know about cannabis use in Veterans with mental health conditions: Research, policy, practice,? and an additional reference: Torrie Chen M.D., Carlos Nixon, Ph.D., Juan M Osman M.D., and Ene Cabrera, Ph.D: Adverse Effects of Marijuana. N Engl J Med 2014; 370:6036-6067, July 31, 2013 DOI: 10.1056/DCEDfg2308633. [facility] Academic Detailing Service Code(s): F12.90 - Cannabis use, unspecified, uncomplicated Category: Medical (8) MDD (major depressive disorder), recurrent episode: Code(s): F33.9 - Major depressive disorder, recurrent, unspecified Category: Medical Qualifiers: Major depression episode severity: moderate Qualified Code(s): F33.1 - Major depressive disorder, recurrent, moderate Plan . Orders: Referrals Pulmonology Referral J45.20 - Mild intermittent asthma, uncomplicated Nurse Navigator Referral J45.20 - Mild intermittent asthma, uncomplicated Medications: New montelukast 10 mg PO DAILY 90 tabs 0RF prednisone 20 mg PO DAILY 5 tabs 0RF ipratropium-albuterol 0.5 mg-3 mg(2.5 mg base)/3 mL 3 mL inhalation Q6H PRN 90 mL 0RF wheezing Refilled ipratropium-albuterol 20-100 mcg/actuation (Combivent Respimat) space evenly during waking hours 1 puff inhalation QID 4 grams 2RF Patient Instructions: Patient Instructions - Use the CombiVent inhaler as prescribed daily. - Take prednisone as prescribed for 5 days. - Continue using montelukast regularly. - Perform salt water gargles for throat discomfort. - Contact your insurance for network providers for autism assessment then provide me this info so i can place referral - NN referral for chronic dz mgmt and education - Pulm referral at [facility] - Updated Optho Referral to [facility] in [facility] . - Follow up with [facility] regarding inhaler refills. RTO Norris for CPE
[2024-08-11 11:32] VITALS: BP 110/67; PULSE 68; RESP 12; TEMP 36.4; O2SAT 99; BMI 24.1
--- OUTSIDE RECORDS SUMMARY | 2024-08-11 12:28 | XMS_ITS | Encounter Summary ---
Author Organization [facility] Address [address] [place] [address] Care Team Providers Care Goggles Assembler Name Role Phone Unavailable Primary Care Provider [...]
== END 2024-08-11 12:36 | disposition home or self-care (01) ==
LOC: HO.HMCFM 10:58
PROVIDERS: PCP Nurse Practitioner Family; Visit Provider Nurse Practitioner Family
DX: J45.20 Mild intermittent asthma, uncomplicated (principal); G40.209 Localization-related (focal) (partial) symptomatic epilepsy and epileptic syndromes with complex partial seizures, not intractable, without status epilepticus; F33.1 Major depressive disorder, recurrent, moderate; Z09 Encounter for follow-up examination after completed treatment for conditions other than malignant neoplasm; G93.49 Other encephalopathy; Z13.41 Encounter for autism screening; F41.1 Generalized anxiety disorder; F12.90 Cannabis use, unspecified, uncomplicated

== ENCOUNTER → 2024-08-11 10:57 | Outpatient (BNVA) | payer OTHER, SELFPAY | PROVIDERS: PCP Nurse Practitioner Family; Visit Provider Nurse Practitioner Family | DX: F41.1 Generalized anxiety disorder (principal); G40.209 Localization-related (focal) (partial) symptomatic epilepsy and epileptic syndromes with complex partial seizures, not intractable, without status epilepticus; G43.909 Migraine, unspecified, not intractable, without status migrainosus; F40.10 Social phobia, unspecified; J45.20 Mild intermittent asthma, uncomplicated; G93.49 Other encephalopathy; F12.90 Cannabis use, unspecified, uncomplicated; F33.1 Major depressive disorder, recurrent, moderate; Z09 Encounter for follow-up examination after completed treatment for conditions other than malignant neoplasm; Z79.899 Other long term (current) drug therapy | CPT/HCPCS: 96127; 96160; 99212 ==

== ENCOUNTER → 2024-09-11 13:30 | Outpatient (BNVA) | payer OTHER, SELFPAY | PROVIDERS: PCP Nurse Practitioner Family | DX: Z71.89 Other specified counseling (principal); J45.909 Unspecified asthma, uncomplicated | CPT/HCPCS: 99211 ==

== ENCOUNTER 2024-10-09 11:04 | Outpatient (AMB) | payer OTHER, MEDICAID, SELFPAY ==
--- NOTE | 2024-10-09 11:27 | A.OFFVIS_ITS ---
Vital Signs 10/09/24 11:27 Height 5 ft 9 in Intake Visit Reasons: 6 Months F/U Accompanied by: Mother Allergies No Known Allergies (No Known Allergies*) Allergy (Verified 10/09/24 11:30) Medication List - Last Reconciled 10/09/24 by Simin Walls CNP albuterol sulfate 90 mcg/actuation (Ventolin HFA) 2 puffs inhalation Q4-6H PRN amitriptyline 25 mg PO BEDTIME bupropion HCl XL 150 mg PO QAM clotrimazole 1% 1 appl topical BID 4 weeks fluticasone propionate 50 mcg/actuation 1 spray intranasal BID fluticasone propionate 100 mcg/actuation 1 inh inhalation DAILY guanfacine 1 mg PO BEDTIME hydroxyzine pamoate 25 mg PO BEDTIME PRN ipratropium-albuterol 0.5 mg-3 mg(2.5 mg base)/3 mL 3 mL inhalation Q6H PRN ipratropium-albuterol 20-100 mcg/actuation (Combivent Respimat) 1 puff inhalation QID montelukast 10 mg PO DAILY nebulizer and compressor As directed oxcarbazepine 300 mg PO BID HPI Comments Details: 24-year-old man with mild chronic static encephalopathy 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 He was here with his mother. No recent seizures. Headaches were okay. Sleep was okay for the most part. He was having some occasional right upper eyelid twitching. Vision was okay and recent eye exam was normal. He was under a lot of stress, and according to his mother, who was tearful throughout the appointment, he was anxious and depressed, and did not like to leave the house. He was working with therapist and psychiatrist. He stopped smoking about 2 weeks ago. [facility] Medical History (Updated 10/09/24 @ 12:07 by Smiin Walls CNP) Seizure disorder Encephalopathy Compulsive behavior disorder Migraines Epilepsy Insomnia Anxiety and depression Asthma Surgical History No pertinent past surgical history Family History (Updated 03/07/24 @ 11:44 by Angel Strong MA) Mother Mental health disorder Maternal Grandmother Diabetes Thyroid disorder Social History Household Members: Family Household Members Other:: mother Both parents involved: No Caregiver staying overnight: No Housing: Apartment Are you a primary director critical care to a significant other at home: No Do you presently have visiting nurse or other home services: No 75 years or older and lives alone: No Alcohol intake: never Patient Tobacco Use Status: Never used Tobacco e-Cigarette/Vaping Use: Never Used Second Hand Smoke Exposure: No Current occupational status: unemployed Cognitive needs: Yes Hearing needs: No Vision needs: No Review of Systems Const Denies chills, Denies daytime sleepiness, Denies difficulty sleeping, Denies fatigue, Denies fever(s), Denies frequent falls, Denies headache(s), Denies increased appetite, Denies poor appetite, Denies snoring, Denies weakness, Denies weight gain and Denies weight loss Eyes Denies loss of vision ENT Denies vertigo, Denies dizziness and Denies headache(s) Card Denies chest pain at rest, Denies chest pain with activity, Denies syncope, Denies leg edema and Denies palpitations Resp Denies snoring GI Denies constipation, Denies heartburn, Denies diarrhea and Denies nausea Denies urinary frequency, Denies urinary incontinence and Denies urinary urgency Musc Denies abnormal gait, Denies numbness and Denies tingling Skin/Breast Denies dry skin and Denies rash Neuro Denies abnormal gait, Denies vertigo, Denies dizziness, Denies syncope, Denies frequent falls, Denies headache(s), Denies lack of coordination, Denies loss of vision, Denies memory loss, Denies numbness, Denies restless legs, Denies seizure-like activity, Denies tingling, Denies paresthesias, Denies tremor(s) and Denies weakness Psych Reports anxiety, Denies depression, Denies auditory hallucinations, Denies memory loss, Denies visual hallucinations and Denies suicidal ideation Endo Denies fatigue and Denies palpitations Physical Exam Const Other: General Appearance:? normal, in no acute distress. Skin:? no rashes, no significant birthmarks. Heart:? S1, S2 normal, no murmurs. Lungs:? clear anteriorly and posteriorly. Extremities:? no edema. Psych:? alert, oriented, cognitive function intact, cooperative with exam. Neuro Other: Mental Status:?Normal attention, orientation, memory and affect.? Cranial Nerves:?Pupils are equal, round and reactive to light. External occular muscles are intact. Visual alfredo are full. Face is symmetrical. Facial sensatio ns are normal. Tongue is midline. Palate elevates symmetrically. Shoulder shrugging is normal. Hearing to bedside conversation is normal. Motor Exam: No atrophy or fasciculations Sensory Exam:?....? Coordination:?No ataxia,?no titubation.? Gait Exam: Within normal limits. Cerebellar Signs:?Eljtrw-fv-tsqq is okay. Extrapyramidal System:?No tremor, rigidity with normal facial expressions.? Pronator Drift:?Not present.? Involuntary Movements:?No tremors seen.? Speech:?Normal.? Assessment & Plan Assessment & Plan (1) Epilepsy with partial complex seizures: Code(s): G40.209 - Localization-related (focal) (partial) symptomatic epilepsy and epileptic syndromes with complex partial seizures, not intractable, without status epilepticus Category: Medical Plan: Continue oxcarbazepine 300mg 1 tablet twice a day. (2) Migraines: Code(s): G43.909 - Migraine, unspecified, not intractable, without status migrainosus Category: Medical Qualifiers: Intractability: not intractable Migraine type: unspecified Status migrainosus presence: without status migrainosus Qualified Code(s): G43.909 - Migraine, unspecified, not intractable, without status migrainosus Plan: Continue amitriptyline 25mg 1 tablet at bedtime. (3) Anxiety and depression: Code(s): F41.9 - Anxiety disorder, unspecified; F32.A - Depression, unspecified Category: Medical Plan: Continue to work with therapist and psychiatrist. Coding Level of Care Code Est Pt Level 4 (47524) Diagnoses Epilepsy with partial complex seizures G40.209 Migraine without status migrainosus, not intractable, unspecified migraine type G43.909 Intractability: not intractable Migraine type: unspecified Status migrainosus presence: without status migrainosus Anxiety and depression F41.9; F32.A
--- OUTSIDE RECORDS SUMMARY | 2024-10-09 12:13 | XMS_ITS | Encounter Summary ---
Author Organization [facility] [employer] Address [address] [place] [address] Care Team Providers Care Gas Station Manager Name Role Phone Unavailable Primary Care Provider [...]
--- OUTSIDE RECORDS SUMMARY | 2024-10-09 12:13 | XMS_ITS | Encounter Summary ---
Author Organization [facility] Address [address] [place] [address] Phone Care Team Providers Care Tile Presser Name Role Phone Will Archuleta MD Primary Care Provider [phone] Chele Daniels MD Primary Care Provider [phone] Gaby Breen BOAT PULLER Primary Care Provider [phone] Leonard Rosales NEWS SPECIALIST Unavailable [phone] Rocío Mosquera RN Unavailable Sherri Pat NEONATAL PEDIATRIC NURSE Unavailable [email or web address] Encounter Details Date Type Department Care Team (Latest Contact Info) Description 08/01/2017 Transcribe Orders [address] [place] [address] Will Archuleta MD [address] [place] [address], [facility] [address] [place] [address] [email or web address] om Screening for lipoid disorders (Primary Dx) Social History Tobacco Use Types Packs/Day Years Used Date Smoking Tobacco: Never Assessed Sex and Gender Information Value Date Recorded Sex Assigned at Male 10/28/2018 2:50 PM EDT Legal Sex Male 8:47 PM EDT Gender Identity Male 10/28/2018 2:50 PM EDT Sexual Orientation Not on file documented as of this encounter Plan of Treatment Not on file documented as of this encounter Results * (ABNORMAL) Lipid panel (08/01/2017 3:51 PM EDT) HDL 36 mg/dL [facility] Comment: Interpretation: Risk Level Males Decreased >45 mg/dL Average 40-45 mg/dL Increased <40 mg/dL CHOLESTEROL 130 0 - 240 mg/dL [facility] Comment: Pediatric Reference Ranges for 2 to 18 years Acceptable: Less than 170 mg/dL Borderline: 170 - 199 mg/dL High: Greater than or equal to 200 mg/dL TRIGLYCERIDES 309(H) 30 - 160 mg/dL [facility] LDL 32(L) 50 - 129 mg/dL [facility] Comment: LDL levels in terms of risk for coronary heart disease: <100 mg/dL: Optimal 100-129 mg/dL: Near or above optimal 130-159 mg/dL: Borderline high 160-189 mg/dL: High >190 mg/dL: Very High CARDIAC RISK RATIO 3.6 3.4 - 5.0 C [facility] Blood 08/01/2017 3:51 PM EDT 08/01/2017 3:52 PM EDT us Will Archuleta MD LAB BLOOD ORDERABLES Final Result [facility] [address] [place] [address] documented in this encounter Visit Diagnoses Diagnosis Screening for lipoid disorders- Primary documented in this encounter Care Teams Tile Presser Relationship Specialty Start Date End Date Will Archuleta MD [address] [place] [address] [email or web address] PCP - General Pediatrics 08/01/17 06/10/20 Chele Daniels MD [address] [place] [address] PCP - General Internal Medicine 06/11/20 12/08/20 Gaby Breen NP [address] [place] [address] PCP - General Family Medicine 12/09/20 Leonard Rosales LICSW [address] [place] [id number] [facility] Social Work 02/14/21 12/10/23 Rocío Mosquera RN [address] [place] [id number] [facility] Health Technician 08/11/22 11/05/22 Sherri Pat LCSW [address] [place] [id number] [email or web address] [facility] Social Work 09/22/22 10/02/22 documented as of this encounter Additional Source Comments The information contained in this document represents components of the legal health record. It is not the complete legal health record.[facility]
== END 2024-10-09 11:45 | disposition home or self-care (01) ==
LOC: HO.HSM 11:04
PROVIDERS: PCP Family Medicine; Referring Provider Family Medicine; Visit Provider Registered Nurse
DX: G40.209 Localization-related (focal) (partial) symptomatic epilepsy and epileptic syndromes with complex partial seizures, not intractable, without status epilepticus (principal); G43.909 Migraine, unspecified, not intractable, without status migrainosus; F41.9 Anxiety disorder, unspecified; F32.A Depression, unspecified
CPT/HCPCS: 99214

== ENCOUNTER 2024-10-21 09:19 | Outpatient (AMB) | payer OTHER, SELFPAY ==
[2024-10-21 09:24] VITALS: BP 120/70; PULSE 72; O2SAT 99; BMI 24.2
--- NOTE | 2024-10-21 09:24 | A.OFFVIS_ITS ---
Vital Signs 10/21/24 09:24 Height 5 ft 9 in Weight 164 lb BMI 24.2 BP 120/70 Blood Pressure Location Rt brachial Pulse 72 Pulse Oximetry (%) 99 Intake Visit Reasons: Asthma Sociology Faculty Member Required: No Accompanied by: Mother Allergies No Known Allergies (No Known Allergies*) Allergy (Verified 10/21/24 09:30) Medication List - Last Reconciled 10/21/24 by Starr Ruelas LPN albuterol sulfate 90 mcg/actuation (Ventolin HFA) 2 puffs inhalation Q4-6H PRN amitriptyline 25 mg PO BEDTIME bupropion HCl XL 150 mg PO QAM clotrimazole 1% 1 appl topical BID 4 weeks fluticasone propionate 50 mcg/actuation 1 spray intranasal BID fluticasone propionate 100 mcg/actuation 1 inh inhalation DAILY guanfacine 1 mg PO BEDTIME hydroxyzine pamoate 25 mg PO BEDTIME PRN ipratropium-albuterol 0.5 mg-3 mg(2.5 mg base)/3 mL 3 mL inhalation Q6H PRN ipratropium-albuterol 20-100 mcg/actuation (Combivent Respimat) 1 puff inhalation QID montelukast 10 mg PO DAILY nebulizer and compressor As directed oxcarbazepine 300 mg PO BID HPI HPI Asthma: Details: Lebron is a pleasant 24 year old male, never tobacco smoker, current marijuana smoker, with underlying asthma, anxiety, MDD and seizure disorder. He was referred by [facility] after evaluation on 08/06 for asthma exacerbation requiring prednisone. CXR unremarkable. Respiratory panel negative. He reports suboptimal control using Flovent, Singulair and Ventolin. He also has a prescription for Combivent which he uses [facility] Medical History (Updated 10/21/24 @ 10:02 by Starr Ruelas LPN) Seizure disorder Encephalopathy Compulsive behavior disorder Migraines Epilepsy Insomnia Anxiety and depression Asthma Surgical History No pertinent past surgical history Family History (Updated 03/07/24 @ 11:44 by Angel Strong MA) Mother Mental health disorder Maternal Grandmother Diabetes Thyroid disorder Social History Household Members: Family Household Members Other:: mother Both parents involved: No Caregiver staying overnight: No Housing: Apartment Are you a primary caretaker resort to a significant other at home: No Do you presently have visiting nurse or other home services: No 75 years or older and lives alone: No Alcohol intake: never Patient Tobacco Use Status: Never used Tobacco e-Cigarette/Vaping Use: Never Used Second Hand Smoke Exposure: No Current occupational status: unemployed Cognitive needs: Yes Hearing needs: No Vision needs: No Physical Exam Vital Signs: Last Vital Signs Pulse 72 10/21/24 09:24 BP 120/70 10/21/24 09:24 Pulse Ox 99 10/21/24 09:24 BMI result Body Mass Index 24.2 Office Procedures Nebulizer Treatment Nebulizer Treatment 38330-Oejjgwqzt/MDI RX initial, or Nebulizer Subsequent Treatment Office Meds ipratropium 0.5 mg-albuterol 3 mg (2.5 mg base)/3 mL nebulization soln Performing Provider: Tarsha Wells NP Performing Location: [facility] Administered by: Starr Ruelas LPN on 10/21/24 10:03 Dose Route Admin Location Dispensed Lot Number Expiration Date NDC Curb Setter Helper 3 mL inhalation 3 mL [id number] 11/25/25 Results Reviewed Results Reviewed: [address] [address] XRay Report Signed Patient: Lebron Lainez MR#: [id number] : 2000 Acct:[id number] Age/Sex: 24 / M ADM Date: 08/06/24 Loc: .ED Attending Dr: Ordering Physician: Generic ED Physician Date of Service: 08/06/24 Procedure(s): XR chest 1V Accession Number(s): [id number] cc: Generic ED Physician; Sherry Skelton~ EXAMINATION: XR CHEST 1 VIEW HISTORY: shortness of breath COMPARISON: Comparison is made with the prior examination dated 11/22/2017. FINDINGS: A single AP portable view of the chest performed at 8:54 AM is submitted. The lungs are expanded and clear. There is no pleural effusion, pneumothorax, or pulmonary vascular congestion. The heart is normal in size. The bones are intact. XR/XR chest 1V IMPRESSION: No acute cardiopulmonary abnormality. Electronically signed by: Jesus Stevens MD 08/06/2024 09:12 AM EDT RP Dictated By: Jesus Stevens MD Signed By: <Electronically signed by Jesus Stevens MD in OV> 08/06/2412 DD/ 0754 TD/TT: 08/06/24 0854 Safe And Vault Installer: Assessment & Plan Assessment & Plan Orders: Orders Complete Blood Count Auto Diff Today Z91.09 - Other allergy status, other than to drugs and biological substances Immunoglobulin E Today Z91.09 - Other allergy status, other than to drugs and biological substances AMB Nebulizer Treatment Today J45.20 - Mild intermittent asthma, uncomplicated Resp Allergy Profile Region I Today Z91.09 - Other allergy status, other than to drugs and biological substances Medications: New fluticasone furoate-vilanterol 100-25 mcg/dose (Breo Ellipta) 1 inh inhalation DAILY 60 ea 3RF doxycycline hyclate 100 mg PO BID 14 caps 0RF Coding CPT Codes Nebulizer Treatment - Nebulizer Treatment, initial or subsequent: 98801- Nebulizer/MDI RX initial, or Nebulizer Subsequent Treatment ([id number])
--- OUTSIDE RECORDS SUMMARY | 2024-10-21 09:45 | XMS_ITS | Encounter Summary ---
Author Organization [facility] Address [address] [place] [address] Care Team Providers Care Clinical Application Consultant Name Role Phone Unavailable Primary Care Provider [...]
--- OUTSIDE RECORDS SUMMARY | 2024-10-21 09:45 | XMS_ITS | Clinical Summary ---
Author Organization [employer] Address [address] [place] [address] Care Team Providers Care Butcher Apprentice Name Role Phone Unavailable Primary Care Provider [...] Date Last Done Comments Depression Screening 1999 Disability Screening 1999 Alcohol/Substance Use Screening 2011 Tobacco Screening 2011 Family Planning (PISQ) 2014 HPV Vaccines (1 - 3-dose series) 2014 DTaP/Tdap/Td Vaccines (1 - Tdap) 2018 Hepatitis B Vaccines (1 of 3 - 19+ 3-dose series) 2018 COVID-19 Vaccine ( - 2023-2 5 season) 2023 Influenza Vaccine (#1) 2024 Zoster Vaccines (1 of 2) 2049 RSV [...] patient's age to complete this topic Meningococcal B Vaccine Aged Out No l onger eligible based on patient's age to complete this topic Meningococcal Vaccine Aged Out No dariela julio cesar eligible based on patient's age to complete this topic Pneumococcal Vaccine: Pediat rics (0 to 5 Years) and At-Risk Patients (6 to 49) Years Aged Out No longer eligible b ased on patient's age to complete this topic RSV under 20 months Aged Out No longe r eligible based on patient's age to complete this topic Rotavirus Vaccines Aged Out No longer eligible based on patient's age to complete this topic
--- OUTSIDE RECORDS SUMMARY | 2024-10-21 09:45 | XMS_ITS | Clinical Summary ---
Author Organization [facility] Address [address] [place] [address] Phone Care Team Providers Care Sheet Combining Operator Name Role Phone Gaby Breen Maureen TRANSPORT ANALYST Primary Care Provider [phone] Allergies Active Allergy Reactions Criticality Noted Date Comments Cat Hair Standardized Allergenic Extract 10/28/2018 Medications buspirone HCl (BUSPIRONE ORAL) Active CLONIDINE HCL ORAL Active lisdexamfetamin e (VYVANSE) 40 MG capsule Take 40 mg by mouth. Active QUEtiapine (SEROQUEL) 100 MG tablet Take 100 mg by mouth nightly at bedtime. Active fluticasone propionate (FLOVENT HFA) 110 mcg/actuation inhaler Inhale 1 puff into the lungs 2 (two) times a day. 1 Inhaler 5 07/15/2020 Active albuterol 90 mcg/actuation inhaler Inhale 2 puffs into the lungs every 6 (six) hours as needed for wheezing. 1 each 3 07/15/2020 Active Active Problems Problem Noted Date Diagnosed Date Social withdrawal 11/24/2018 Overview (06/11/2020): Not in school or working. Stays in room most of the time. Video van all the time. Significant underlying social anxiety Last Assessment & Plan: Not in school or working. Stays in room most of the time. Video van all the time. Significant underlying social anxiety Hypertriglyceridemia without hypercholesterolemi a 08/25/2017 Overview (06/11/2020): On non-fasting sample and with past TGL normal (5Y ago) this is likely transient elevation from diet Social anxiety disorder 07/05/2017 Continuous cannabis use 05/19/2017 Overview (06/11/2020): Last Assessment & Plan: Trying to cut back. Down to ~ 3x per week. Sometimes uses to help with social anxiety Mild persistent asthma without complication 05/28 Overview (08/12/2020): Moderate persistent asthma, much improved after prescription of Flovent May 2020 ADHD (attention deficit hype ractivity disorder), combined type 11/08/2014 Overview (06/11/2020): Last Assessment & Plan: Followed by Dr Hood/[employer] [facility]. Stable on Vyvanse. Not in school or working. Immunizations Immunization Administration Dates Next Due DTaP 06/01/2004, 1,05/23/2000,12/25,1999 FJoM-Akd-LRP 06/01/2004, 1,05/23/2000,12/25,1999 HPV,quadrivalent 04/01/2014,09/17/2012, 3 Hepatitis B 1999,1999,1999 Hib,PRP-T 11/06/2000, 0,1999,05/02 IPV 06/01/2004, 1,01/28/2000,04/27 Influenza Quadrivalent Prese rvative Free IM 06/17/2015,04/01/2014 MMR 06/01/2004,03/14/2000 Meningococcal MCV4P 07/05/2017,06/15/2011 Tdap 06/15/2011 Varicella 06/15/2011,03/14/2000 Social History Tobacco Use Types Packs/Day Years Used Date Smoking Tobacco: Never Smokeless Tobacco: Never Alcohol Use Standard Drinks/Week Comments No 0 (1 standard drink = 0.6 oz pur e alcohol) Child or Family Care Answer Date Record ed Do you have problems with on e of the following making it difficult for you to work, study, or receive health care? No 06/11/2020 Education Answer Date Recorded Are you interested in more education? Not on yenifer e 06/23/2022 Are you concerned about learning? Not on file 06/23/2022 No 06/23/2022 No 06/23/2022 Food Answer Date Recorded Within the past 6 months we worried whether our food would run out before we got money to buy more. Never True 06/11/2020 Within the past 6 months the food we bought just didn't last and we didn't have enough money to get more. Never True Paying for Meds Answer Date Recorded Do you have trouble paying for medicines? No 06/11/2020 Paying Utility Bills Answer Date Record ed Do you have trouble paying your heating or elect ricity bill? No 06/11/2020 Transportation Answer Date Recorded Has the lack of transportati on kept you from medical appointments or from getting medications? I choose not to answer 06/11/2020 Digital Access Answer Date Recorded No 07/24/2022 No 07/24/2022 No 07/24/2022 Reliable internet access at home? Not on file 07/24/2022 Device with a working camera? Not on file Sex and Gender Information Value Date Recorded Sex Assigned at Male 10/28/2018 2:50 PM EDT Legal Sex Male 8:47 PM EDT Gender Identity Male 10/28/2018 2:50 PM EDT Sexual Orientation Not on file Last Filed Vital Signs Vital Sign Reading Time Taken Comments Blood Pressure 120/72 08/12/2020 4:37 PM EDT Pulse 93 08/12/2020 4:37 PM EDT Temperature 37.6 C (99.7 F) 08/12/2020 4:37 PM EDT Respiratory Rate 18 10/28/2018 4:37 PM EDT Oxygen Saturation 98% 08/12/2020 4:37 PM EDT Inhaled Oxygen Concentration - - Weight 68.9 kg (152 lb) 08/12/2020 4:37 PM EDT Height 171 cm (5' 7.32 ) 08/12/2020 4:37 PM EDT Body Mass Index 23.58 08/12/2020 4:37 PM EDT Plan of Treatment Health Maintenance Due Date Last Done Comments SMOKING Hx and SMOKELESS TOBACCO SCREENING 2012 HEPATITIS C SCREENING 2017 HIV ONE-TIME SCREENING (18-65 YEARS) 2017 MENINGOCOCCAL VACCINES (B) (2 of 2 - Trumenba SCDM 2-dose series) 05/20/2019 11/19/2018 PNEUMOCOCCAL VACCINES (0-49 years) (2 of 2 - PCV) 12/02/2021 12/02/2020 DEPRESSION SCREENING 02/23/2022 02/23/2021, 06/12/19 21 COVID-19 VACCINE ( season) 2023 Adult Td,Tdap Booster 02/07/2031 02/07/2021, 012 HIB VACCINES Completed 06/01/2004, 10/2000, 11/06/2000, Additional history exists HPV VACCINES Completed 04/01/2014, 08/27, 07/18/2012 MENINGOCOCCAL VACCINES (ACWY) Completed 07/05/2017, 06/15/2011 HEPATITIS A VACCINES Aged Out 11/19/2018 No long er eligible based on patient's age to complete this topic Medical Devices Not on file Insurance [facility]CO [facility] [place] [address] [place] [address] ACO Care Teams Sheet Combining Operator Relationship Specialty Start Date End Date Gaby Breen NP [address] [place] [id number] PCP - General Family Medicine 12/09/20 Additional Source Comments The information contained in this document represents components of the legal health record. It is not the complete legal health record.[facility]
--- OUTSIDE RECORDS SUMMARY | 2024-10-21 09:45 | XMS_ITS | Encounter Summary ---
Author Organization [facility] Address [address] [place] [address] Phone Care Team Providers Care Needle Molder Name Role Phone Will Archuleta MD Primary Care Provider [phone] Chele Daniels MD Primary Care Provider [phone] Gaby Breen MANAGER LOCATION Primary Care Provider [phone] Leonard Rosales JAVA APPLICATION DEVELOPER Unavailable [phone] Rocío Mosquera RN Unavailable Sherri Pat [facility] MAGISTRATE Unavailable [email or web address] Encounter Details Date Type Department Care Team (Latest Contact Info) Description 08/01/2017 Transcribe Orders [address] [place] [address] Will Archuleta MD [address] [place] [address], [facility] [address] [place] [address] [email or web address] Screening for lipoid disorders (Primary [...] (08/01/2017 3:51 PM EDT) HDL 36 mg/dL [facility] Comment: Interpretation: Risk Level Males Decreased >45 mg/dL Average 40-45 mg/dL Increased <40 mg/dL CHOLESTEROL 130 0 - 240 mg/dL [facility] Comment: Pediatric Reference Ranges for 2 to 18 years Acceptable: Less than 170 mg/dL Borderline: 170 - 199 mg/dL High: Greater than or equal to 200 mg/dL TRIGLYCERIDES 309(H) 30 - 160 mg/dL [facility] LDL 32(L) 50 - 129 mg/dL [facility] Comment: LDL levels in terms of risk for coronary heart disease: <100 mg/dL: Optimal 100-129 mg/dL: Near or above optimal 130-159 mg/dL: Borderline high 160-189 mg/dL: High >190 mg/dL: Very High CARDIAC RISK RATIO 3.6 3.4 - 5.0 C [facility] Blood 08/01/2017 3:51 PM EDT 08/01/2017 3:52 PM EDT us Will Archuleta MD LAB BLOOD ORDERABLES Final Result [facility] [address] [place] [address] documented in this encounter Visit Diagnoses Diagnosis Screening for lipoid disorders- Primary documented in this encounter Care Teams Needle Molder Relationship Specialty Start Date End Date Will Archuleta MD [address] [facility], [address] [place] [address] [email or web address] PCP - General Pediatrics 08/01/17 06/10/20 Chele Daniels MD [address] [facility] [place] [address] PCP - General Internal Medicine 06/11/20 12/08/20 Gaby rBeen NP [address] [place] [address] PCP - General Family Medicine 12/09/20 Leonard Rosales LICSW [address] [place] [id number] [facility] Social Work 02/14/21 12/10/23 Rocío Mosquera RN [address] [place] [id number] [facility] Gaming Worker 08/11/22 11/05/22 Sherri Pat LCSW [address] [place] [id number] [email or web address] [facility] Social Work 09/22/22 10/02/22 documented as of this encounter Additional Source Comments The information contained in this document represents components of the legal health record. It is not the complete legal health record.[facility]
== END 2024-10-21 10:09 | disposition home or self-care (01) ==
LOC: HO.HPSW 09:21
PROVIDERS: PCP Nurse Practitioner Family; Referring Provider Nurse Practitioner Family; Visit Provider Nurse Practitioner Family
DX: J45.20 Mild intermittent asthma, uncomplicated (principal)

== ENCOUNTER 2024-10-21 09:19 | Outpatient (REF) | payer OTHER, SELFPAY ==
[2024-10-21 14:13] LABS: MANUAL DIFF FLAG NO
[2024-10-21 14:20] LABS: Hematocrit 52.5 % (42.0-52.0); Hemoglobin 17.9 g/dl (14.0-18.0); Imm Gran Abs Auto 0.03 X10*3/uL (0.00-0.03); Imm Gran Pct Auto 0.4 % (0.0-0.4); Lymphocytes Absolute Auto 2.8 X10*3/uL (1.2-4.9); Mean Corpuscular HGB Conc 34.1 g/dl (31.0-36.0); Mean Corpuscular Hemoglobin 27.4 pg (27.0-33.0); Mean Corpuscular Volume 80.4 fL (80.0-98.0); NRBC Abs Auto 0.000 X10*3/uL (0.0-0.012); NRBC Pct Auto 0.0 /100WBC (0.0-0.2); Platelet Count 307 X10*3/uL (160-400); Red Blood Count 6.53 X10*6/uL (4.60-5.80); White Blood Count 8.5 X10*3/uL (4.8-10.8)
[2024-10-24 19:34] LABS: Class Alternaria alternata 0; Class Aspergillus fumigatus 0; Class Bermuda Grass 0; Class Birch 0; Class Cat Dander 2; Class Cladosporium herbarum 0; Class Cockroach 0; Class Common Ragweed 0; Class Cottonwood 0; Class Derm. pterony 4; Class Dermatophagoides farinae 4; Class Dog Dander 0/1; Class Elm 0; Class Maple Box Elder 0; Class Mountain Cedar 0; Class Mouse Urine Protein 0; Class Mugwort 0; Class Oak 0; Class Penicillium crysogenum 0; Class Rough Pigweed 0; Class Sheep Sorrel 0; Class Sycamore 0; Class Timothy Grass 2; Class Walnut Tree 0; Class White Ash 0; Class White Mulberry 0; D002 - IgE D farinae 22.80 kU/L; E001 - IgE Cat Dander 1.43 kU/L; E005 - IgE Dog Dander 0.16 kU/L; G006 - IgE Timothy Grass 1.15 kU/L; I006-IgE Cockroach, German <0.10 kU/L; M002 - IgE Cladosporium herbar <0.10 kU/L; M003 - IgE Aspergillus fumigat <0.10 kU/L; M006 - IgE Alternaria alternat <0.10 kU/L; T001 IgE Maple/Box Elder <0.10 kU/L; T006 - IgE Cedar, Mountain <0.10 kU/L; T007 - IgE Oak, White <0.10 kU/L; T008 IgE Elm, American <0.10 kU/L; T010 - IgE Walnut <0.10 kU/L; T011 - IgE Maple Leaf Sycamore <0.10 kU/L; T014 - IgE Cottonwood <0.10 kU/L; T015 - IgE Ash, White <0.10 kU/L; T070 - IgE White Mulberry <0.10 kU/L; W001 - IgE Ragweed, Short <0.10 kU/L; W006 - IgE Mugwort <0.10 kU/L; W014 IgE Pigweed, Common <0.10 kU/L; W018 IgE Sheep Sorrel <0.10 kU/L
== END 2024-10-21 09:20 | disposition home or self-care (01) ==
LOC: HO.WFDLDS 09:19
PROVIDERS: PCP Nurse Practitioner Family; Referring Provider Nurse Practitioner Family; Visit Provider Nurse Practitioner Family
DX: J45.20 Mild intermittent asthma, uncomplicated (principal); Z01.84 Encounter for antibody response examination; Z91.09 Other allergy status, other than to drugs and biological substances; Z79.51 Long term (current) use of inhaled steroids
CPT/HCPCS: 36415; 82785; 85025; 86003; 94640; 99202

== ENCOUNTER 2025-02-20 15:46 | Outpatient (AMB) | payer MEDICAID, SELFPAY ==
--- OUTSIDE RECORDS SUMMARY | 2025-02-20 15:49 | XMS_ITS | Clinical Summary ---
Author Organization [employer] Address [address] [facility] [address] [place] [address] Care Team Providers Care Tank Crewmember Name Role Phone Unavailable Primary Care Provider [...] 3-dose series) 2018 COVID-19 Vaccine ( - 2024-2 6 season) 2024 Influenza Vaccine (#1) 2024 Zoster Vaccines (1 [...]
--- OUTSIDE RECORDS SUMMARY | 2025-02-20 15:49 | XMS_ITS | Encounter Summary ---
Author Organization [facility] Address [address] [place] [address] Phone Care Team Providers Care Hr Specialist Name Role Phone Will Archuleta MD Primary Care Provider [phone] Chele Daniels MD Primary Care Provider [phone] Gaby Breen CUSTODIAN ATHLETIC EQUIPMENT Primary Care Provider [phone] Leonard Rosales ROLLED OATS MILL OPERATOR Unavailable [phone] Rocío Mosquera RN Unavailable Sherri Pat ASSISTANT ACCOUNT EXECUTIVE [facility]available [email or web address] Encounter Details Date Type Department Care Team (Latest Contact Info) Description 08/01/2017 Transcribe Orders [address] [place] [address] Will Archuleta MD [address] [place] [address], [address] [place] [address] [email or web address] Screening for lipoid disorders (Primary Dx) [...] (08/01/2017 3:51 PM EDT) HDL 36 mg/dL [facility] Comment: Interpretation: Risk Level Males Decreased >45 mg/dL Average 40-45 mg/dL Increased <40 mg/dL CHOLESTEROL 130 0 - 240 mg/dL [facility] Comment: Pediatric Reference Ranges for 2 to 18 years Acceptable: Less than 170 mg/dL Borderline: 170 - 199 mg/dL High: Greater than or equal to 200 mg/dL TRIGLYCERIDES 309(H) 30 - 160 mg/dL [facility] LDL 32(L) 50 - 129 mg/dL [facility] Comment: LDL levels in terms of risk for coronary heart disease: <100 mg/dL: Optimal 100-129 mg/dL: Near or above optimal 130-159 mg/dL: Borderline high 160-189 mg/dL: High >190 mg/dL: Very High CARDIAC RISK RATIO 3.6 3.4 - 5.0 C [facility] Blood 08/01/2017 3:51 PM EDT 08/01/2017 3:52 PM EDT us Will Archuleta MD LAB BLOOD BKR ORDERABLES Fi nal Result [facility] [address] [place] [address] documented in this encounter Visit Diagnoses Diagnosis Screening for lipoid disorders- Primary documented in this encounter Care Teams Hr Specialist Relationship Specialty Start Date End Date Will Archuleta MD [address] [facility], [address] [place] [address] [email or web address] PCP - General Pediatrics 08/01/17 06/10/20 Chele Daniels MD [address] [facility], [address] [place] [address] PCP - General Internal Medicine 06/11/20 12/08/20 Gaby Breen NP [address] [place] [address] PCP - General Family Medicine 12/09/20 Leonard Rosales LICSW [address] [place] [id number] [email or web address] PHCM Airport Maintenance Laborer 02/14/21 12/10/23 Rocío Mosquera RN [address] [place] [id number] [facility] Multi Media Specialist 08/11/22 11/05/22 Sherri Pat LCSW [address] [place] [phone] [email or web address] [facility] Airport Maintenance Laborer 09/22/22 10/02/22 documented as of this encounter Additional Source Comments The information contained in this document represents components of the legal health record. It is not the complete legal health record.[facility]
--- OUTSIDE RECORDS SUMMARY | 2025-02-20 15:49 | XMS_ITS | Encounter Summary ---
Author Organization [facility] Address [address] [facility] 7[address] [place] [address] Care Team Providers Care Search Engineer Name Role Phone Unavailable Primary Care Provider [...]
--- OUTSIDE RECORDS SUMMARY | 2025-02-20 15:49 | XMS_ITS | Clinical Summary ---
Author Organization [facility] Address [address] [place] [address] Phone Care Team Providers Care Correctional Food Service Supervisor Name Role Phone Gaby Breen Maureen ELECTROLOGIST Primary Care Provider [phone] Allergies Active Allergy Reactions Criticality Noted Date [...] Last Assessment & Plan: Followed by Dr Hood/ROD BUSTER HELPER. Stable on Vyvanse. Not in school or working. Immunizations Immunization Administration Dates Next Due DTaP 06/01/2004, 1,05/23/2000,12/25,1999 FAxX-Dlp-SUW 06/01/2004, 1,05/23/2000,12/25,1999 HPV,quadrivalent 04/01/2014,09/17/2012, 3 Hepatitis B [...] 12/02/2020 DEPRESSION SCREENING 02/23/2022 02/23/2021, 06/12/19 21 INFLUENZA VACCINE (#1) 2024 , 11/19/2018, 06/17/2015, Additional history exists COVID-19 VACCINE ( season) 2024 Adult Td,Tdap Booster 02/07/2031 02/07/2021, 012 HIB VACCINES Completed 06/01/2004, 10/2000, 11/06/2000, Additional history exists HPV VACCINES Completed 04/01/2014, 08/27, 07/18/2012 MENINGOCOCCAL VACCINES (ACWY) Completed 07/05/2017, 06/15/2011 HEPATITIS A VACCINES Aged Out 11/19/2018 No long er eligible based on patient's age to complete this topic Medical Devices Not on file Insurance [facility] ACO [facility] Care Teams Correctional Food Service Supervisor Relationship Specialty Start Date End Date Gaby Breen NP [address] [place] [address] PCP - General Family Medicine 12/09/20 Additional Source Comments The information contained in this document represents components of the legal health record. It is not the complete legal health record.[facility]
[2025-02-20 15:50] VITALS: BP 102/70; PULSE 94; O2SAT 95; BMI 24.6
--- NOTE | 2025-02-20 15:50 | A.OFFVIS_ITS ---
Vital Signs 02/20/25 15:50 Height 5 ft 9 in Weight 166 lb 8 oz BMI 24.6 BP 102/70 Blood Pressure Location Rt brachial Position Sitting Pulse 94 Pulse Source Pulse Oximeter Pulse Oximetry (%) 95 Oxygen Delivery Method Room Air Intake Visit Reasons: Asthma Allergies No Known Allergies (No Known Allergies*) Allergy (Verified 02/20/25 15:53) HPI Comments Details: Lebron is a pleasant 24 year old male, never tobacco smoker, current marijuana smoker, with underlying childhood asthma, anxiety, MDD and seizure disorder. Jonathan olson he is accompanied by his mother. He was initially referred by PCP for further management of asthma. At the last visit he reported persistent respiratory symptoms following a respiratory infection since July noting productive cough with greenish sputum production, constant congestion and wheezing. He was prescribed prednisone and doxycycline with resolution of symptoms. He was also prescribed Breo, which he uses as-needed for chest tightness rather than daily as a preventative measure. He reports using it approximately once a week, stating that one use provides relief for a couple of weeks. He denies any recent visits to urgent care or his primary care provider for prednisone or antibiotics since his last visit. Regarding medications, the patient is not currently taking montelukast ( Singulair), although he has it available. He also has a Combivent inhaler which he uses more than albuterol for emergencies, but reports not using it at all recently. Today he denies any respiratory symptoms and presents to review RAST results. Pulmonology History - History of asthma since 4 months of age. - Primary symptom is chest tightness, which occurs approximately once a week. - Prescribed Breo, which he uses as needed rather than daily. - Has an albuterol rescue inhaler. - Not currently taking prescribed montelukast (Singulair). - History of emotional triggers for asthma. - Denies recent urgent care visits or use of prednisone for asthma. Results - Allergy Testing: Positive for dust mites, jessica grass, cats, and dogs. [facility] Medical History (Updated 10/21/24 @ 10:02 by Starr Ruelas LPN) Seizure disorder Encephalopathy Compulsive behavior disorder Migraines Epilepsy Insomnia Anxiety and depression Asthma Surgical History No pertinent past surgical history Family History (Updated 03/07/24 @ 11:44 by Angel Strong MA) Mother Mental health disorder Maternal Grandmother Diabetes Thyroid disorder Social History Household Members: Family Household Members Other:: mother Both parents involved: No Caregiver staying overnight: No Housing: Apartment Are you a primary child care group leader to a significant other at home: No Do you presently have visiting nurse or other home services: No 75 years or older and lives alone: No Alcohol intake: never Patient Tobacco Use Status: Never used Tobacco e-Cigarette/Vaping Use: Never Used Second Hand Smoke Exposure: No Current occupational status: unemployed Cognitive needs: Yes Hearing needs: No Vision needs: No Review of Systems Narrative Const Denies chills, Denies excessive sweating, Denies fever(s), Denies headache(s) and Denies night sweats Eyes Denies dry eyes, Denies irritation and Denies itchy eyes ENT Reports Normal hearing present, Denies headache(s), Denies nasal congestion, Denies nasal discharge, Denies post nasal drip and Denies sore throat Card Denies chest pain, Denies chest pain at rest, Denies chest pain with activity, Denies claudication, Denies leg edema, Denies dyspnea, Denies dyspnea on exertion, Denies orthopnea and Denies paroxysmal nocturnal dyspnea Resp Denies chest congestion, Denies cough, Denies excessive phlegm production, Denies pain on inspiration, Denies pain with cough, Denies dyspnea, Denies dyspnea on exertion, Denies stridor and Denies wheezing Musc Denies myalgias Neuro Reports Normal hearing present and Denies headache(s) Endo Denies excessive sweating Michael/Lymph Denies lymphadenopathy Aller/Immun Denies itchy eyes, Denies seasonal rhinorrhea and Denies wheezing Physical Exam Exam Exam: Vital Signs: Last Vital Signs Pulse 94 02/20/25 15:50 BP 102/70 02/20/25 15:50 Pulse Ox 95 02/20/25 15:50 Oxygen Delivery Method Room Air 02/20/25 15:50 BMI result Body Mass Index 24.6 Const General: cooperative, healthy appearing, comfortable, no acute distress, well developed and alert Orientation/consciousness: patient oriented x3 Limitations: no limitations HEENT Head: Yes normal to inspection, Yes normocephalic and Yes atraumatic Ears: hearing grossly normal bilaterally and external ears normal Eyes General: appearance normal, both eyes and all related structures Eyelids: Yes eyelids normal Sclerae: sclerae normal EOM: EOMs intact bilaterally Neck Neck: Yes normal visual inspection and Yes no lymphadenopathy Lymphatic: no lymphadenopathy noted Chest Chest palpation & inspection: normal inspection of the chest Resp Effort & Inspection: normal respiratory effort, able to speak in complete sentences, no audible wheezes, no cough, no stridor, not tachypneic, no tripod positioning and no use of accessory muscles Auscultation: clear to auscultation bilaterally Cardio Jugular venous distension: no JVD Rate: regular rate Rhythm: regular rhythm Skin Other: warm, dry General skin exam: no rashes or lesions noted Neuro General: patient oriented x3 Cranial nerves: Yes Normal hearing present Cognition (Neuro): normal cognition Gait exam (Neuro): Normal gait present Extrem General: Yes normal to inspection, Yes capillary refill normal, Yes no clubbing, cyanosis or edema and Yes no pedal edema Psych Appearance: grossly normal and well kempt Speech and movement: Normal speech and movement present and Clear speech present Affect: normal affect Attitude: cooperative Thought process: Normal thought process present Thought content: Normal thought content present Insight: Good insight present (Psych) Judgement: Good judgement present (Psych) Assessment & Plan Assessment & Plan (1) Asthma: Code(s): J45.909 - Unspecified asthma, uncomplicated Category: Medical (2) Environmental allergies: Code(s): Z91.09 - Other allergy status, other than to drugs and biological substances Category: Medical Plan Discussed with the patient his asthma management and his current practice of using the Breo inhaler only when he feels chest tightness. Explained that Breo is a preventative medication that is most effective when used every day to prevent symptoms and reduce the risk of severe asthma attacks that could lead to urgent care visits or the need for prednisone. We reviewed his allergy test results, highlighting his allergy to dust mites and other triggers like grass, cats, and dogs. Recommended he consider restarting Singulair (montelukast) daily for additional preventative control of allergy- related symptoms, especially given the continuous exposure to dust. We discussed environmental controls like dust mite covers for his bedding in addition to an air purifier. Advised him to ensure he always has his albuterol rescue inhaler on hand for emergencies and to check that it is not . We will plan to follow up in six months, but instructed him to contact the office sooner if his symptoms worsen. All questions were answered and patient is in agreement of plan. Will follow up in 3-6 months or sooner if needed. Patient Instructions - Take your Breo inhaler every day as a preventative measure, even if you are not feeling symptoms. - Consider restarting your Singulair (montelukast) medication daily to help control your allergy symptoms. - Consider dust mite covers for your mattress and pillows. - Always keep your albuterol rescue inhaler with you for emergencies, and make sure it has not . - Call us sooner if your symptoms get worse or if you need to use your rescue inhaler more frequently. Patient was informed and verbally consented to the use of an ambient scribe for clinic note documentation during this visit. Coding Level of Care Code Est Pt Level 4 (65345) Diagnoses Asthma J45.909 Environmental allergies Z91.09
== END 2025-02-20 16:10 | disposition home or self-care (01) ==
LOC: HO.HPSW 15:47
PROVIDERS: PCP Nurse Practitioner Family; Visit Provider Nurse Practitioner Family
DX: J45.909 Unspecified asthma, uncomplicated (principal); Z91.09 Other allergy status, other than to drugs and biological substances
CPT/HCPCS: 99214

== ENCOUNTER → 2025-02-20 15:46 | Outpatient (BNVA) | payer MEDICAID, SELFPAY | PROVIDERS: PCP Nurse Practitioner Family; Visit Provider Nurse Practitioner Family | DX: J45.909 Unspecified asthma, uncomplicated (principal); Z91.09 Other allergy status, other than to drugs and biological substances; Z79.899 Other long term (current) drug therapy | CPT/HCPCS: 99212 ==